=== PATIENT | female | born 1985 | race Caucasian/White ===

== ENCOUNTER 2018-04-03 13:19 | Emergency (ER) | payer OTHER ==
[2018-04-03 13:49] VITALS: BP 134/74
--- NOTE | 2018-04-03 14:12 | UC ---
Complaint Female HPI - HPI Summary HPI Summary: couple days of urgency frequency and burning with urination, no fevers, chills nausea vomiting or back pain - History Of Current Complaint Chief Complaint: UCGU Stated Complaint: URINARY Time Seen by Provider: 04/03/18 13:45 Hx Obtained From: Patient Hx Last Menstrual Period: IRREGULAR D/T DEOP INJ ?: No Onset/Duration: Sudden Onset, Lasting Days - 2 Timing: Constant Pain Intensity: 4 Pain Scale Used: 0-10 Numeric Character: Burning Aggravating Factor(s): Urination Associated Signs And Symptoms: Positive: Negative - Allergies/Home Medications Allergies/Adverse Reactions: Allergies Allergy/AdvReac Type Severity Reaction Status Date / Time No Known Allergies Allergy Verified 04/03/18 13:43 Home Medications: Home Medications medroxyPROGESTERone ACETATE* [DEPO-Provera*] 1 syringe SEE INSTRUCTIONS [History Confirmed 04/03/18] PMH/Surg Hx/FS Hx/Imm Hx Previously Healthy: Yes - Surgical History Surgical History: Yes Surgery Procedure, Year, and Place: gallbladder. 2 c-sections - Family History Known Family History: Positive: None - Social History Occupation: Employed Full-time Lives: With Family Alcohol Use: Occasionally Substance Use Type: None Smoking Status (MU): Never Smoked Tobacco - Immunization History Most Recent Tetanus Shot: UTD Review of Systems Constitutional: Negative Skin: Negative Eyes: Negative ENT: Negative Respiratory: Negative Cardiovascular: Negative Gastrointestinal: Negative Genitourinary: Dysuria, Frequency, Urgency Motor: Negative Neurovascular: Negative Musculoskeletal: Negative Neurological: Negative Psychological: Negative Is Patient Immunocompromised?: No All Other Systems Reviewed And Are Negative: Yes Physical Exam Triage Information Reviewed: Yes Appearance: Well-Appearing, No Pain Distress, Obese Vital Signs: Initial Vital Signs Temp 97.7 F 04/03/18 13:44 Pulse 89 04/03/18 13:44 Resp 16 04/03/18 13:44 BP 134/74 04/03/18 13:44 Pulse Ox 99 04/03/18 13:44 Vital Signs Reviewed: Yes Eye Exam: Normal Eyes: Positive: Conjunctiva Clear ENT Exam: Normal ENT: Positive: Normal ENT inspection, Hearing grossly normal. Negative: Trismus , Muffled voice, Hoarse voice Dental Exam: Normal Neck exam: Normal Neck: Positive: Supple, Nontender Respiratory Exam: Normal Respiratory: Positive: Chest non-tender, No respiratory distress, No accessory muscle use Cardiovascular Exam: Normal Cardiovascular: Positive: RRR, Pulses Normal, Brisk Capillary Refill Abdominal Exam: Normal Abdomen Description: Positive: Nontender, No Organomegaly, Soft. Negative: CVA Tenderness (R), CVA Tenderness (L) Bowel Sounds: Positive: Present Musculoskeletal Exam: Normal Musculoskeletal: Positive: Strength Intact, ROM Intact, No Edema Neurological Exam: Normal Neurological: Positive: Alert, Muscle Tone Normal Psychological Exam: Normal Skin Exam: Normal Complaint Female Dx - Course Course Of Treatment: will culture urine, begin bactrim and will d/c as appropriate - Differential Dx/Diagnosis Provider Diagnoses: UTI Sx Discharge - Sign-Out/Discharge Documenting (check all that apply): Patient Departure - Discharge Plan Condition: Stable Disposition: HOME Prescriptions: Sulfamethox/Trimethoprim DS* [Bactrim DS 800/160 TAB*] 1 tab PO BID #14 tab Patient Education Materials: Urinary Tract Infection in Women (ED), Urinary Urgency and Frequency (DC) Referrals: Shanita Ramon MD [Primary Care Provider] - 1 Week - Billing Disposition and Condition Condition: STABLE Disposition: Home Attestation Statement User Type: Provider - I was available for consult. This patient was seen by the KATHY. The patient was not presented to, seen by, or examined by me. -Robert
== END 2018-04-03 14:18 | disposition home or self-care (01) ==
LOC: UCCORT 13:19
DX: N39.0 Urinary tract infection, site not specified (principal)
CPT/HCPCS: 81003; 84702; 87086; 99212; G0463

== ENCOUNTER 2018-07-03 08:36 | Emergency (ER) | payer OTHER ==
--- OUTSIDE RECORDS SUMMARY | 2018-07-03 08:45 | XMS REPORT ---
:1985 External Reference #:[id number] Author Organization [facility] Address [address], [address] [place] [address] Phone [phone] Care Team Providers Name Role Phone Ivy Briceño FNP Care Team Information Insulation Sprayer Unavailable Ivy Briceño FNP Primary Care Physician Unavailable Payers Type Date Identification Numbers Payment Provider Subscriber Commercial Expires: Policy Number: [id number] [employer] Addie Cobos 2018 PayID: [id number] [address] [place] [address] Medicaid Policy Number: [id number] Medicaid Addie Cobos PayID: [id number] [address] [place] [address] Workers Compensation Onset: 2017 Policy Number: Franchesca Cobos [id number] PayID: [id number] 1 Franchesca Ledezma [place], [place] Problems Date Description Provider Status Onset: 07/06/2013 Palpitations GutierrezLudy vernon, Active MSN, COIL [employer]ER Onset: 07/06/2013 Dyspnea GutierrezLudy, Active MSN, COIL [employer]ER Onset: 07/06/2013 Abdominal pain Ludy Gutierrez, Active MSN, [employer]ER Onset: 07/06/2013 Dizziness and giddiness Ludy Gutierrez, Active MSN, COIL SH[employer]ER Onset: 07/06/2013 Chest pain GutierrezLudy garcia, Active MSN, COIL SH[employer]ER Onset: 06/16/2017 Mild intermittent asthma Gianni Garcia, COIL SHAPER Active Onset: 06/16/2017 Migraine without aura, not Tyra GarciamarleecaitlinROZ Active refractory Onset: 06/16/2017 Gastroesophageal reflux disease Gianni GarciaROZ Active Onset: 06/16/2017 Posttraumatic stress disorder Tyra GarciamarleecaitlinROZ Active Family History Date Family Member(s) Problem(s) Comments Father IBS Father Hypertension Father Anxiety Mother Chronic Obstructive Pulmonary Disease (COPD) : (age 60 Mother due to MT Years) Mother CHF Mother Diabetes Mother Kidney Disease Mother Anxiety Mother Depression : (age 65 Paternal Grandfather due to MT Years) : (age 92 Paternal Grandmother due to Old-Age Years) : (age 80 Maternal Grandfather due to Alzheimer's Years) Disease Maternal Grandmother Stroke Maternal Grandmother Hypertension Maternal Grandmother Alcoholism Social History Type Date Description Comments Marital Status Lives With Children Home Environment lives with spouse Diet Patient is on a gluten-free diet 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 Venlafaxine HCL 06/14 Active Tablets 75mg 90tab take 1 F41.1 Joss s tablet by MD Nu mouth once daily Depo-Provera 09/30 Active Suspension 150mg/ml 1ml 1 inj Yenny intramuscula drake Diehl M.D. 3month Lorazepam 08/27 Active Tablets 1mg 30tab 1 tab by F43.10 Hemant s mouth every Karime, daily as PNP-BC, needed, COIL SHAPER, reference #: Ibclc [id number] F41.9 Amoxicillin 05/31/ Hx Capsules 500mg 21cap take 1 tablet J01.9 Hemant, 2017 - s every 8 hours for 0 Karime, 10/12/ 7 days. PNP-BC, COIL SHAPER, 2018 Ibclc Polymyxin B 05/31/ Hx Solution 88016-0. 10ml instill 1 drop H10.0 Hemant, Sulfate/Trimethop 2018 - 1Unit/ML into affected eye 22 Karime, rim Sulfate 06/11/ -% 4 times per day PNP-BC, COIL SHAPER, 2018 for 5 days for Ibclc inflammation of eyelid lining Vitamin D3 08/28/ Hx Capsules 85047Maf 8caps 1 cap by mouth Shanita Ramon, 2017 - t every week x 8 M.D. 2017 Ferrous Sulfate 08/28/ Hx Tablets 325(65Fe 60tab take 1 tablet by Shanita Ramon, 2016 - ) mg s mouth bid M.D. 2017 Sumatriptan 06/16/ Hx Tablets 25mg 9tabs one by mouth at G43.0 Clune, Succinate 2016 the first sign of Jenniferlei headache, december h, COIL SHAPER repeat dose in 2 hours if needed. mdd 2 Zofran 06/16/ Hx Tablets 4mg 30tab 1tab po q4-6 hrs Cl2016 s prn for nausea h, COIL SHAPER Famotidine 01/22/ Hx Tablets 20mg 30tab 1 by mouth every 2016 - s day in the MD Freddy 2016 Zofran / Hx Tablets 2mg 30tab 1tab po q4-6 hrs Unknown 0000 - s prn for nausea 2016 Advair Diskus / Hx Aerosol 100-50mc 60uni twice a day as Clune, - g/Dose ts needed for wheeze Jenniferleig 08/27/ h, COIL SHAPER 2016 Omeprazole / Hx Capsules DR 20mg 30cap 1 by mouth every Clune, 0000 - s day Jenniferleig h, COIL SHAPER 2017 Lorazepam / Hx Tablets 0.5mg 30tab 1 by mouth bid F43.1 Shanita Ramon, 0000 - s prn 0 M.D. 2016 F41.9 Sulfamethoxazole/Trimethoprim Hx Tablets 800-160mg 14tabs 1 po Unknown DS bid Metoclopramide HCL Hx Tablets 5mg 30tabs 1 tab Unknown po q 4-6 hr prn for nausea Pepcid Hx Tablets 20mg 30tabs 1 by Unknown - mouth 06/16/2017 once a day Venlafaxine HCL ER Hx Caps ER 150mg 90caps take 1 Clune, - 24HR capsule Tyra 05/31/2018 by jason, mouth COIL SHAPER every morning Bupropion HCL ER (XL) Hx Tablets 300mg 90tabs 1 by Clune, - ER 24HR mouth Tyra 05/31/2018 daily jason, COIL SHAPER Topiramate Hx Tablets 100mg 180tabs take 1 Clune, - tablet Tyra 05/31/2018 2 times jason, daily COIL SHAPER Ventolin HFA Hx Aerosol 108(90Base 2 puffs J Unknown - ) mcg/Act by 4 05/31/2018 mouth 5 every 4 . hours 2 as 0 needed Ibuprofen Hx Tablets 600mg take 1 Unknown - tablet 05/31/2018 by mouth three times a day if needed for pain Medications Administered in Office Medication Date Status Form Strength Qnty SIG Indications Ordering Provider PPD Administered Injection Marcela Briceño FNP Vital Signs Date Vital Result Comment 06/14/2018 BP Systolic Sitting Right Arm 124 mmHg BP Diastolic Sitting Right Arm 76 mmHg Body Temperature 97.1 F Heart Rate 88 /min Respiratory Rate 18 /min Height 60 inches 5'0" Weight 242.38 lb BMI (Body Mass Index) 47.3 kg/m2 BSA (Body Surface Area) 2.03 m2 [place] body weight in kilograms 45 O2 % BldC Oximetry 97 % 05/31/2018 BP Systolic 112 mmHg BP Diastolic 72 mmHg Body Temperature 98.0 F Heart Rate 102 /min Respiratory Rate 18 /min Height 60 inches 5'0" Weight 243.00 lb BMI (Body Mass Index) 47.5 kg/m2 BSA (Body Surface Area) 2.03 m2 [place] body weight in kilograms 45 O2 % BldC Oximetry 97 % 09/30/2017 BP Systolic Sitting Left Arm 112 mmHg large cuff BP Diastolic Sitting Left Arm 68 mmHg large cuff Height 60 inches 5'0" Weight 227.50 lb BMI (Body Mass Index) 44.4 kg/m2 BSA (Body Surface Area) 1.97 m2 [place] body weight in kilograms 45 08/27/2017 BP Systolic 108 mmHg BP Diastolic 70 mmHg Body Temperature 98.0 F Heart Rate 89 /min Height 60 inches 5'0" Weight 227.00 lb BMI (Body Mass Index) 44.3 kg/m2 BSA (Body Surface Area) 1.97 m2 [place] body weight in kilograms 45 O2 % BldC Oximetry 98 % 06/19/2017 BP Systolic 125 mmHg BP Diastolic 86 mmHg Body Temperature 97.8 F Heart Rate 86 /min Height 60 inches 5'0" Weight 220.38 lb BMI (Body Mass Index) 43.0 kg/m2 BSA (Body Surface Area) 1.95 m2 [place] body weight in kilograms 45 06/16/2017 BP Systolic Sitting Resting Right Arm 112 mmHg BP Diastolic Sitting Resting Right Arm 72 mmHg Heart Rate 70 /min Height 59 inches 4'11" Weight 220.00 lb BMI (Body Mass Index) 44.4 kg/m2 BSA (Body Surface Area) 1.92 m2 [place] body weight in kilograms 45 01/22/2017 BP Systolic Sitting Left Arm 120 mmHg BP Diastolic Sitting Left Arm 90 mmHg Heart Rate 106 /min Respiratory Rate 16 /min Height 60 inches 5'0" Weight 237.00 lb BMI (Body Mass Index) 46.3 kg/m2 BSA (Body Surface Area) 2.01 m2 [place] body weight in kilograms 45 07/06/2013 BP Systolic Sitting Right Arm 104 mmHg BP Diastolic Sitting Right Arm 68 mmHg Heart Rate 84 /min Respiratory Rate 16 /min Height 60 inches 5'0" Weight 228.00 lb BMI (Body Mass Index) 44.5 kg/m2 BSA (Body Surface Area) 1.97 m2 Results Test Date Test Result H/L Range Note Laboratory test finding 06/14/2018 Mumps Antibodies, 26.2 AU/mL Immune > 10.9 1, 2 Igg Rubella IgG Antibody 4.69 index Immune >0.99 1, 3 Rubeola Antibodies, Igg >300.0 AU/mL Immune >29.9 1, 4 Laboratory test finding 04/03/2018 Poc , Urine Negative Negative 5 Poc Urinalysis 04/03/2018 Poc Glucose, Urine Negative Negative Poc Bilirubin, Urine Negative Negative Poc Ketone, Urine Negative Negative Poc Specific [place], Urine 1.025 1.010-1.030 Poc Blood, Urine Trace-intact Negative Poc pH, Urine 5.5 5-9 Poc Protein, Urine Negative Negative Poc Urobilinogen, Urine 0.2 Negative Poc Nitrite, Urine Negative Negative Poc Leukocytes, Urine Negative Negative Poc Color, Urine Yellow Poc Clarity, Urine Slightly Cloudy 6 Urine Culture And 04/03/2018 Urine Culture SEE RESULT BELOW 7, 8 Sensitivities Iron-Tibc-%Sat 08/27/2017 Serum Iron 25 g/dL Low 50-170 9 Total Iron Binding Capacity 383 g/dL 250-450 9 Transferrin %Saturation 7 % Low 12-57 9 Reflex add FT3? Y 9 Reflex add FT4? Y 9 Magnesium 08/27/2017 Magnesium 2.2 mg/dL 1.8-2.4 9 Reflex add FT3? Y 9 Reflex add FT4? Y 9 Laboratory test 08/27/2017 Vitamin D,25-Hydroxy 22.7 ng/mL Low 30.0-100.0 9, 10 finding Comprehensive 08/27/2017 Glucose 98 mg/dL 74-106 9 Metabolic Panel BUN 15 mg/dL 7-18 9 Creatinine 0.8 mg/dL 0.6-1.3 9 Glom Filtration Rate, Estimate >60 mL/min >60 9 If >60 mL/min >60 9, 11 BUN/Creat 18.7 ratio 9 Sodium 139 mmol/L 136-145 9 Potassium 4.3 mmol/L 3.5-5.1 9 Chloride 108 mmol/L High 98-107 9 Carbon Dioxide 27 mmol/L 21-32 9 Anion Gap 4 mEq/L Low 8-16 9 Calcium 8.7 mg/dL 8.5-10.1 9 Total Protein 7.4 g/dL 6.4-8.2 9 Albumin 3.3 g/dL Low 3.4-5.0 9 Globulin 4.1 g/dL 1.9-4.3 9 Alb/Glob 0.8 ratio 9 Bilirubin,Total 0.2 mg/dL 0.2-1.0 9 Sgot/Ast 14 U/L Low 15-37 9, 12 SGPT/Alt 19 U/L 12-78 9 Alkaline Phosphatase 86 U/L 45-117 9 Reflex add FT3? Y 9 Reflex add FT4? Y 9 TSH Reflex FT4 And/Or FT3 08/27/2017 Thyroid Stim Hormone 1.34 uIU/mL 0.30-4.20 9 Reflex add FT3? Y 9 Reflex add FT4? Y 9 CBS W/Automated Diff 08/27/2017 White Blood Count 5.5 K/uL 3.1-10.7 9 Red Blood Count 4.48 M/uL 3.90-5.40 9 Hemoglobin 11.3 gm/dL Low 11.6-15.8 9 Hematocrit 36.4 % 36.0-46.1 9 Mean Cell Volume 81.3 fl 80.9-99.0 9 Mean Corpuscular HGB 25.2 pg Low 25.9-32.7 9 Mean Corpuscular HGB Conc 31.0 g/dL 30.8-34.3 9 Platelet Count 366 K/uL High 155-360 9 Red Cell Distri Width SD 45.5 fl 3-47 9 Red Cell Distri Width %CV 15.8 % High 11.7-14.4 9 Mean Platelet Volume 9.4 fL 8.9-12.4 9 Neut% 59.6 % 40.4-72.8 9 Lymph % 30.3 % 20.0-42.0 9 [place] % 6.6 % 4.3-13.2 9 Eo% 3.1 % 0.0-6.6 9 Bas% 0.4 % 0.0-1.1 9 Neut# 3.26 K/uL 1.8-7.0 9 Lymph # 1.66 K/uL 1.0-4.0 9 [place] # 0.36 K/uL 0.3-0.9 9 Eos # 0.17 K/uL 0.0-0.5 9 Baso # 0.02 K/uL 0.0-0.1 9 CBS W/Automated Diff 04/30/2017 White Blood Count 5.5 K/uL 3.1-10.7 13 Red Blood Count 4.14 M/uL 3.90-5.40 13 Hemoglobin 10.8 gm/dL Low 11.6-15.8 13 Hematocrit 34.1 % Low 36.0-46.1 13 Mean Cell Volume 82.4 fl 80.9-99.0 13 Mean Corpuscular HGB 26.1 pg 25.9-32.7 13 Mean Corpuscular HGB Conc 31.7 g/dL 30.8-34.3 13 Platelet Count 304 K/uL 150-400 13 Red Cell Distri Width SD 44.8 fl 3-47 13 Red Cell Distri Width %CV 15.4 % High 11.7-14.4 13 Mean Platelet Volume 9.0 fL 8.9-12.4 13 Neut% 54.2 % 40.4-72.8 13 Lymph % 35.0 % 20.0-42.0 13 [place] % 7.9 % 4.3-13.2 13 Eo% 2.7 % 0.0-6.6 13 Bas% 0.2 % 0.0-1.1 13 Neut# 2.96 K/uL 1.8-7.0 13 Lymph # 1.91 K/uL 1.0-4.0 13 [place] # 0.43 K/uL 0.3-0.9 13 Eos # 0.15 K/uL 0.0-0.5 13 Baso # 0.01 K/uL 0.0-0.1 13 Ua RFX Micro & Culture II 04/30/2017 Urine Color YELLOW Yellow 13 Urine Clarity CLOUDY Clear 13 Urine Glucose - Dipstick NEGATIVE mg/dL Negative 13 Urine Bilirubin - Dipstick NEGATIVE Negative 13 Urine Ketone NEGATIVE mg/dL Negative 13 Urine Specific [place] 1.015 1.010-1.030 13 Urine Blood NEGATIVE Negative 13 Urine PH 8.0 High 6.5-7.5 13 Urine Protein - Dipstick TRACE mg/dL Negative 13 Urine Urobilinogen - Dipstick 0.2 E.U./dL 0.2-1.0 13 Urine Nitrite - Dipstick NEGATIVE Negative 13 Urine Leuk Esterase NEGATIVE Negative 13 Source: URINE, CLEAN CAT <SEE NOTE> 13, 14 Celiac Disease Comp AB Profile 01/22/2017 Immunoglobulin A 188 mg/dL 87- 352 15 Antigliadin Abs, IgG 3 units 0-19 15, 16 Antigliadin Abs, IgA 8 units 0-19 15, 17 Endomysial IgA Antibody Negative Negative 15 t-Transglutaminase IgA <2 U/mL 0-3 15, 18 t-Transglutaminase IgG <2 U/mL 0-5 15, 19 Laboratory test finding 01/22/2017 Sedimentation Rate 48 mm/hr High 0-20 15, 20 C-Reactive Protein,Quant 15.5 mg/L High <3.0 15 Iron-Tibc-%Sat 01/22/2017 Serum Iron 22 g/dL Low 50-170 15 Total Iron Binding Capacity 366 g/dL 250-450 15 Transferrin %Saturation 6 % Low 12-57 15 1 Z00.00 2 Negative <9.0 Equivocal 9.0 - 10.9 Positive >10.9 A positive result generally indicates past exposure to Mumps virus or previous vaccination. 3 Non-immune <0.90 Equivocal 0.90 - 0.99 Immune >0.99 Performed at: [address] [id number] [employer] Professor: Arianna Ho MD, Phone: [phone] 4 Negative <25.0 Equivocal 25.0 - 29.9 Positive >29.9 Presence of antibodies to Rubeola is presumptive evidence of immunity except when acute infection is suspected. Performed at: [address] [id number] [employer] Professor: Arianna Ho MD, Phone: [phone] 5 Human Intelligence: [id number] If is still suspected, please repeat test after 48 to 72 hours. 6 Human Intelligence: [id number] SEE RESULT BELOW Name: ADDIE COBOS : [address]: Aaliyah Coreas MD Acct: [id number] Unit: [id number] AGE: 33 Location: [facility] Re04/03/18 SEX: F Status: DEP ER SPEC: [id number] DEYVI: 04/03/[address]: Hafsa Dee NP REQ: [id number] RECD: 04/04/18 STATUS: ROSIO CARMONA DR: Shanita Coreas MD _ SOURCE: URINE [facility]: ORDERED: Urine Culture COMMENTS: [id number] Procedure Result Reported Site Urine Culture Final 04/05/18- 1323 ML No growth of clinically significant organisms * ML - Main Lab . END OF REPORT DEPARTMENT OF PATHOLOGY, [address] [place] [address] Chaka Barrios M.D. Director [facility] # [id number] 9 F43.10 K21.9 D50.9 10 Vitamin D deficiency has been defined by the [place] of Medicine and an Endocrine Society practice guideline as a level of serum 25-OH vitamin D less than 20 ng/mL (1,2). The Endocrine Society went on to further define vitamin D insufficiency as a level between 21 and 29 ng/mL (2). 1. IOM ([place] of Medicine). 2010. Dietary reference intakes for calcium and D. [place]: The National Academies Press. 2. Iman MF, Lore MARTINEZ, Dori WEBSTER, et al. Evaluation, treatment, and prevention of vitamin D deficiency: an Endocrine Society clinical practice guideline. JCEM. 2010; 96(7):1911-30. Performed at: - [address] [id number] [employer] Professor: Arianna Ho MD, Phone: [phone] 11 Note: Persistent reduction for 3 months or more in an eGFR <60 mL/min/1.73 m2 defines CKD. Patients with eGFR values >/=60 mL/min/1.73 m2 may also have CKD if evidence of persistent proteinuria is present. The original MDRD equation for estimated GFR is not valid for patients less than 18 years of age. Additional information may be found at www.kdoqi.org. 12 Values below the stated reference ranges of AST and ALT can be seen in normal populations. Clinical correlation is suggested. 13 STOMACH PAIN 14 URINE, CLEAN CATCH 15 R19.7 16 Negative 0 - 19 Weak Positive 20 - 30 Moderate to Strong Positive >30 17 Negative 0 - 19 Weak Positive 20 - 30 Moderate to Strong Positive >30 18 Negative 0 - 3 Weak Positive 4 - 10 Positive >10 Tissue Transglutaminase (tTG) has been identified as the endomysial antigen. Studies have demonstr- ated that endomysial IgA antibodies have over 99% specificity for gluten sensitive enteropathy. 19 Negative 0 - 5 Weak Positive 6 - 9 Positive >9 Performed at: - [facility] [id number] [employer] Professor: Arianna Ho MD, Phone: [phone] Method: Sediplast Modified [place] Procedures Date CPT Code Description Status 09/30/2017 11761 Colposcopy With Biopsy Completed 08/31/2015 Mammogram Completed 07/06/2013 63963 EKG-Tracing And Report Completed 07/06/2013 81849 EKG-Tracing And Report Completed 06/17/2013 99416 Event Monitor Inter/Review Only Completed 02/05/2009 58210 EGD With Biopsy Completed Encounters Type Date Location Provider CPT E/M Dx Office Visit 06/14/2018 3:00p [facility] Ivy Briceño FNP 87750 Z02.1 F41.1 L30.9 Z11.1 Office Visit 05/31/2018 3:30p [facility] Ivy Briceño FNP 56789 J01.90 H10.022 Office Visit 09/30/2017 11:30a [facility] Shanita Ramon M.D. 65898 R87.610 R87.810 F43.10 Office Visit 08/27/2017 10:15a [facility] Shanita Ramon M.D. 98554 F43.10 K21.9 J45.20 G43.009 R87.619 Office Visit 06/19/2017 9:30a Orthopaedic Office Nikki Henao, 66815 M25.531 [facility] M25.531 M25.531 Office Visit 06/16/2017 1:15p [facility] Gianni Garcia [facility] 88847 J45.20 G43.009 K21.9 F43.10 Office Visit 01/22/2017 9:15[place] [address] R10.9 R19.7 Office Visit 07/06/2013 2:00p Cardiology Office Ludy Gutierrez, 52419 785.1 [facility], [facility] 786.05 780.4 786.50 Office Visit 06/17/2013 4:57p Cardiology Office Manjeet Lay, 86460 785.1 [place], [facility] 786.05 Office Visit 02/20/2009 1:45p [place] [address] 789.00 Office Visit 12/07/2008 10:20[place] [address] 789.09 Plan of Care Future Appointment(s):07/07/2018 4:00 pm - Ivy Briceño FNP at [facility]
--- OUTSIDE RECORDS SUMMARY | 2018-07-03 08:45 | XMS REPORT | Continuity of Care Document ---
:1985 External Reference #:[id number] Author Name Hillary Oglesby NP Address [address] [place] [address] Care Team Providers Name Role Phone Shanita Ramon MD Primary Care Physician Unavailable Payers Type Date Identification Numbers Payment Provider Subscriber Effective: 2018 Policy Number: [id number] [place] Addie Causey PayID: [id number] [address] [place] [phone] Expires: 2018 Policy Number: [id number] Medicaid Pe ([facility]) Addie Causey PayID: [id number] [address] [place] [id number] Advance Directives Description No Information Available Problems Description No Active Problems Family History Date Family Member(s) Problem(s) Comments Father Hypertension Father Alive Mother Social History Type Date Description Comments Sex Female Education Highest level completed, 12th grade Marital Status Legal Status: Tobacco Use Reviewed: 01/13/18 Never Smoked Cigars Tobacco Use Reviewed: 01/13/18 Never Smoked A Pipe Smoking Status Reviewed: 01/13/18 Never Smoked A Pipe Tobacco Use Reviewed: 01/13/18 Never Used Smokeless Tobacco ETOH Use Rarely consumes alcohol Recreational Drug Use Teaching provided regarding Naloxone/Narcan Training Available At [facility] Tobacco Use Start: Unknown End: Patient is a former smoker Unknown Recreational Drug Use Never Used Drugs Tattoo/Piercing Tattoo Tattoo/Piercing Tattoos professionally done Condom Use Occasionally Contraceptive Methods Past methods include oral contraceptives Contraceptive Methods Current methods include depo-provera injection UNKNOWN 01/13/2018 Never E-Cigarette User Allergies, Adverse Reactions, Alerts Description No Known Drug Allergies Medications Medication Date Status Form Strength Qnty SIG Indications Ordering Provider Diflucan 06/17 Active Tablets 150mg 2tabs one tab by B37.3 mouth x one Kelchner, 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 one tab by mouth 72 hours later Depo-Provera 04/07 Active Suspension 150mg/ml 1ml intramuscular In every 12 MD Johnathan weeks til next annual Valacyclovir 11/20 Active Tablets 1gm 5tabs one tab by A60.04 In mouth once a MD Johnathan day x 5 days prn at onset of symptoms Flagyl 05/19 Hx Tablets 500mg 4tabs four tabs by A59.01 In mouth x 1 MD Johnathan - dose 06/17 Fluconazole 05/19 Hx Tablets 150mg 2tabs one tab today A59.01 In and december MD Johnathan - repeat in 10 06/17 days if still symptomatic Fluconazole 04/07 Hx Tablets 150mg 2tabs one tab today B37.3 In and december MD Johnathan - repeat in 05/19 days if still symptomatic Metronidazole 02/25 Hx Tablets 500mg 14tab one tab by N76.0 s mouth twice Kelchner, - daily x 7 LA[employer] WORKER 04/07 days no etoh Diflucan 02/25 Hx Tablets 150mg 1tabs one tab N76.0 orally x one Kelchner, - dose. LAUNDRY WORKER 04/07 Diflucan 11/20 Hx Tablets 150mg 2tabs one tab B37.3 orally x one Kelchner, - dose. december LAUNDRY WORKER 02/25 repeat in days. Valacyclovir 11/02 Hx Tablets 1gm 20tab one tab by A60.04 s mouth twice a Kelchner, - day x 10 days LAUNDRY WORKER 11/20 Metronidazole 11/02 Hx Tablets 500mg 14tab one tab by Z11.3 s mouth twice Kelchner, - daily x 7 LAUNDRY WORKER 11/20 days no etoh Depo-Provera 07/28 Hx Suspension 150mg/ml 1ml 1 Z30.42 intramuscular Kelchner, - injection [employer] WORKER 06/17 every weeks until annual exam Effexor XR Hx Unknown /0000 - 04/07 Wellbutrin SR Hx Unknown /0000 - 04/07 Omeprazole 00/ Hx Unknown /0000 - 04/07 Keflex / Hx Unknown /0000 - 02/25 Medications Administered in Office Medication Date Status Form Strength Qnty SIG Indications Ordering Provider Plan B One-Step 07/28/ Administered Tablets 1.5mg 1tabs take Z30.012 Hillary Vidal 2017 one Mendel, serena LA[employer]DR[employer] WORKER today Plan B One-Step 1tabs1 Administered Tablets 1.5mg 1 tab In [facility] by MD Johnathan 017 mouth now J-Depo Provera 04/07/ Administered Injection Estephania Injection 2017 TANYA Koch J-Depo Provera 01/13/ Administered Injection Cielo Injection 2017 Edwards J-Depo Provera 10/16/ Administered Injection Cielo Injection 2017 Edwards J-Depo Provera 10/16/ Administered Injection RN Injection 2017 Schedule Emergency 07/28/ Administered Injection Hillary Vidal Contraceptive 2017 TANYA Oglesby J-Depo Provera 07/28/ Administered Injection Hillary M Injection 2017 TANYA Oglesby Emergency 06/22/ Administered Injection Cielo Contraceptive 2016 Edwards Immunizations Description No Information Available Vital Signs Date Vital Result Comment 06/17/2018 11:01am BP Systolic 123 mmHg BP Diastolic 82 mmHg Height 60 inches 5'0" Weight 241.00 lb BMI (Body Mass Index) 47.1 kg/m2 05/19/2018 11:46am BP Systolic 124 mmHg BP Diastolic 78 mmHg Height 60 inches 5'0" Weight 244.00 lb BMI (Body Mass Index) 47.6 kg/m2 04/07/2018 10:33am BP Systolic 132 mmHg electronic BP Diastolic 77 mmHg electronic Height 60 inches 5'0" Weight 240.00 lb BMI (Body Mass Index) 46.9 kg/m2 02/25/2018 12:18pm BP Systolic 125 mmHg BP Diastolic 80 mmHg Height 60 inches 5'0" Weight 240.00 lb BMI (Body Mass Index) 46.9 kg/m2 01/13/2018 9:24am BP Systolic 124 mmHg BP Diastolic 80 mmHg Weight 227.00 lb 11/20/2017 2:34pm BP Systolic 110 mmHg BP Diastolic 70 mmHg Height 60 inches 5'0" Weight 218.00 lb BMI (Body Mass Index) 42.6 kg/m2 11/02/2017 12:15pm BP Systolic 124 mmHg BP Diastolic 80 mmHg Height 60 inches 5'0" Weight 218.00 lb BMI (Body Mass Index) 42.6 kg/m2 10/16/2017 9:15am BP Systolic 124 mmHg BP Diastolic 74 mmHg Weight 232.00 lb 07/28/2017 2:21pm BP Systolic 119 mmHg BP Diastolic 85 mmHg Height 60 inches 5'0" Weight 229.00 lb BMI (Body Mass Index) 44.7 kg/m2 06/25/2017 11:22am BP Systolic 120 mmHg BP Diastolic 80 mmHg Height 60 inches 5'0" Weight 218.00 lb BMI (Body Mass Index) 42.6 kg/m2 06/22/2017 3:01pm BP Systolic 120 mmHg BP Diastolic 78 mmHg Height 60 inches 5'0" Weight 220.00 lb BMI (Body Mass Index) 43.0 kg/m2 Results Test Date Facility Test Result H/L Range Note Laboratory test finding 06/17/2018 [facility] Trichomonas neg Wet Prep.... 06/17/2018 [facility] WBC Smear 0 Clue Cells Vag Fluid Wet Prep 0 Jerri Wet Prep hyphae and buds Lactobacillus Wet Prep few Whiff Wet Prep neg. Bacteria Wet Prep n/a PH Wet Prep 7.5 High multiples rbc's Misc Other Test no trich seen Laboratory test finding 05/19/2018 [facility] Trichomonas positive Wet Prep.... 05/19/2018 [facility] WBC Smear neg Clue Cells Vag Fluid Wet Prep neg Jerri Wet Prep neg Lactobacillus Wet Prep pos Whiff Wet Prep pos Bacteria Wet Prep na PH Wet Prep 6 Misc Other Test no tric seen ( Chlamydia/N 05/19/[address] [facility] [address],Rna,Tma,Urogenital NOT DETECTED Not Detected 1 Gonorroeae Rna Tma Urogenit GC Rna,Tma,Urogen NOT DETECTED Not Detected 2 Wet Prep.... 04/07/2018 [facility] WBC Smear neg Clue Cells Vag Fluid Wet Prep neg Jerri Wet Prep many Lactobacillus Wet Prep neg Whiff Wet Prep neg Bacteria Wet Prep na PH Wet Prep 4.5 Misc Other Test no tric Wet Prep.... 02/25/2018 [facility] WBC Smear 0 Clue Cells Vag Fluid Wet Prep many Jerri Wet Prep 0 Lactobacillus Wet Prep few Whiff Wet Prep + Bacteria Wet Prep n/a PH Wet Prep 7.5 Misc Other Test no trich seen Chlamydia/N 02/25/[address] [facility] [address],Rna,Tma,Urogenital NOT DETECTED Not Detected 3 Gonorroeae Rna Tma Urogenit GC Rna,Tma,Urogen NOT DETECTED Not Detected 4 Chlam 11/20/2017 [facility] C.Trachomatis NOT DETECTED Not Detected 5 Trach/Neisseria Rna,Tma Gonorroeae Rna Tma N.Gonorrhoeae Rna,Tma NOT DETECTED Not Detected 6 Wet Prep.... 11/20/2017 [facility] WBC Smear few Clue Cells Vag Fluid Wet Prep 0 Jerri Wet Prep many Lactobacillus Wet Prep many Whiff Wet Prep neg. Bacteria Wet Prep n/a PH Wet Prep 4.5 Misc Other Test no trich seen Urinalysis DIP Only.... 11/20/2017 [facility] Urine Leukocyte Esterase QN neg. Urine Nitrite QN neg. Urine Blood neg. Urine PH 7 Urine Protein Random neg. Urine Ketone Random neg. Urine Glucose QN Random neg. Chlam 11/02/2017 [facility] C.Trachomatis NOT DETECTED Not Detected 7 Trach/Neisseria Rna,Tma Gonorroeae Rna Tma N.Gonorrhoeae Rna,Tma NOT DETECTED Not Detected 8 Herpes Simplex Virus Culture W/RFX 11/02/2017 [facility] OTHER-NOT GIVEN Type HSV Culture ISOLATED Not Isolated Laboratory test finding 11/02/2017 [facility] HSV Type 2 ISOLATED Not Isolated 9 Wet Prep.... 11/02/2017 [facility] WBC Smear few Clue Cells Vag Fluid Wet Prep many Jerri Wet Prep 0 Lactobacillus Wet Prep few Whiff Wet Prep + Bacteria Wet Prep n/a PH Wet Prep 6.0 Misc Other Test no trich seen Laboratory test 08/13/2017 [facility] Test neg finding Urine..... Laboratory test 07/28/2017 [facility] Test negative finding Urine..... Thinprep Tis And 06/25/2017 [facility] Results ASCUS/ HPV+ 10 HPV Rna HR E6/E7 Tma Chlam 06/25/2017 [facility] C.Trachomatis NOT DETECTED Not Detected 11, 12 Trach/Neisseria Rna,Tma Gonorroeae Rna Tma N.Gonorrhoeae Rna,Tma NOT DETECTED Not Detected 13 Laboratory test finding 06/25/2017 [facility] Test Urine..... neg 1 This test was performed using the APTIMA COMBO2(R) Assay (GEN-PROBE(R). The analytical performance characteristics of this assay, when used to test SurePath(R) specimens have been determined by [employer]. 2 This test was performed using the APTIMA COMBO2(R) Assay (GEN-PROBE(R). The analytical performance characteristics of this assay, when used to test SurePath(R) specimens have been determined by [facility]. 3 This test was performed using the APTIMA COMBO2(R) Assay (GEN-PROBE(R). The analytical performance characteristics of this assay, when used to test SurePath(R) specimens have been determined by [facility]. 4 This test was performed using the APTIMA COMBO2(R) Assay (GEN-PROBE(R). The analytical performance characteristics of this assay, when used to test SurePath(R) specimens have been determined by [facility]. 5 This test was performed using the APTIMA COMBO2(R) Assay (GEN-PROBE(R). The analytical performance characteristics of this assay, when used to test SurePath(R) specimens have been determined by [facility]. 6 This test was performed using the APTIMA COMBO2(R) Assay (GEN-PROBE(R). The analytical performance characteristics of this assay, when used to test SurePath(R) specimens have been determined by [facility]. 7 This test was performed using the APTIMA COMBO2(R) Assay (GEN-PROBE(R). The analytical performance characteristics of this assay, when used to test SurePath(R) specimens have been determined by [facility]. 8 This test was performed using the APTIMA COMBO2(R) Assay (GEN-PROBE(R). The analytical performance characteristics of this assay, when used to test SurePath(R) specimens have been determined by [facility]. 9 HSV Type 1 testing not performed. The incidence of HSV Type 1 infection in the presence of HSV type 2 (dual infection) is extremely rare. 10 GYNECOLOGICAL CYTOLOGY REPORT THINPREP TIS AND HPV mRNA E6/E7 Thinprep-TIS REPORT STATUS: FINAL CLINICAL INFORMATION: Information not provided SLIDES / SOURCE: 1 / Information not provided STATEMENT OF ADEQUACY: Satisfactory for evaluation. Endocervical/transformation zone component present. GENERAL CATEGORIZATION: EPITHELIAL CELL ABNORMALITY INTERPRETATION/RESULT: Atypical Squamous Cells of Undetermined Significance (ASC-US) Shift in vaginal bill suggestive of bacterial vaginosis. COMMENT: This Pap test has been evaluated with computer assisted technology. HOME APPLIANCE INSTALLER: MERCED CRUZ(ASC) For informational Purposes: All cytology specimens are processed and screened at [facility]. [address] [place] [id number] PATHOLOGIST: Curt Sánchez MD Board Certified in Anatomic and Clinical Pathology (electronic signature) For questions regarding this report call Anatomic Pathology at [phone] HPV mRNA E6/E7 HPV mRNA E6E7 Detected REFERENCE RANGE: NOT DETECTED This test was performed using the APTIMA HPV Assay ([employer] This assay detects E6/E7 viral messenger RNA (mRNA) from 14 high-risk HPV types (16,18,31,33,35,39,45,51,52,56,58,59,66,68). For more information on the limitations of this test, visit: http://[email or web address]_ [employer].Urbasolar/testcenter/ testguide.action?dc=TS_[email or web address]_E7_TMA 11 cx 12 This test was performed using the APTIMA COMBO2(R) Assay ([employer](R). The analytical performance characteristics of this assay, when used to test SurePath(R) specimens have been determined by [employer]. 13 This test was performed using the APTIMA COMBO2(R) Assay (GEN-PROBE(R). The analytical performance characteristics of this assay, when used to test SurePath(R) specimens have been determined by [employer]. Procedures Date Code Description Status 04/07/2018 07208 Therapeutic, Prophylactic Or Diagnostic Injection Subq/Im Completed 01/13/2018 73876 Therapeutic, Prophylactic Or Diagnostic Injection Subq/Im Completed 10/16/2017 48026 Therapeutic, Prophylactic Or Diagnostic Injection Subq/Im Completed 10/16/2017 70152 Therapeutic, Prophylactic Or Diagnostic Injection Subq/Im Completed 07/28/2017 44780 Therapeutic, Prophylactic Or Diagnostic Injection Subq/Im Completed Encounters Description No Information Available Plan of Treatment Future Appointment(s):06/24/2018 12:00 pm - LAUNDRY WORKER at [facility]06/17/2018 - Hillary Oglesby, NPB37.3 Candidiasis of vulva and vaginaNew Medication:Diflucan 150 mg - one tab by mouth x one dose then take one tab by mouth 72 hours laterComments: Hyphae seen on wet prep. Treat for Jerri with Diflucan. Reviewed use of, side effects and precautions of medication with patient who states understanding. Instructed patient on genital hygeine.Z30.42 Encounter for surveillance of injectable contraceptiveComments:Patient is UTD on her Depo. She will continue on Depo for now. She is considering switching to either an IUD or a Nexplanon. She is scheduled for an appointment in one week. She states that she has brochures on both. Advised her that should she decide that she would like an IUD , she should call the office 2-3 days before her appointment so that she can be given pre-insertion instructions and possiblea rx for Cytotec. Patient states understanding.Z11.3 Encounter for screening for infections with a predominantlyComments:Reviewed STD risks and prevention with patient. Patient states understanding.R21 Rash and other nonspecific skin eruptionComments: Unclear etiology. Appears to be viral in nature. Advised patient that she could try OTC benadryl or loratadine prn for the itching. Advised her that should sx worsen or not resolve, she should schedulea f/u appt with her PCP.
[2018-07-03 09:00] VITALS: BP 140/61
[2018-07-03] MEDS ORDERED: Ibuprofen TAB* 400 MG PO ONE (09:18)
--- NOTE | 2018-07-03 09:21 | UC ---
Throat Pain/Nasal Haris HPI - HPI Summary HPI Summary: Pt c/o sudden onset of ST, fever, chills, body aches X 2 days. - History of Current Complaint Chief Complaint: UCRespiratory Stated Complaint: SORE THROAT Time Seen by Provider: 07/03/18 09:06 Hx Obtained From: Patient Hx Last Menstrual Period: 2nd week May 2018 ?: No Onset/Duration: Sudden Onset, Lasting Days, Still Present Severity: Moderate Pain Intensity: 5 Cough: None Associated Signs & Symptoms: Positive: Dysphagia, Fever - Epiglottits Risk Factors Epiglottis Risk Factors: Sudden Onset - Allergies/Home Medications Allergies/Adverse Reactions: Allergies Allergy/AdvReac Type Severity Reaction Status Date / Time No Known Allergies Allergy Verified 07/03/18 08:51 Home Medications: Home Medications Acetaminophen [Acetaminophen Extra Strength] 1,000 mg PO ONCE PRN 07/03/18 [ History Confirmed 07/03/18] Ibuprofen TAB* [Motrin TAB* 600 MG] 600 mg PO ONCE PRN 07/03/18 [History Confirmed 07/03/18] Venlafaxine EXT RELEASE CAP* [Effexor Xr CAP*] 75 mg PO DAILY 07/03/18 [History Confirmed 07/03/18] PMH/Surg Hx/FS Hx/Imm Hx Previously Healthy: Yes - Surgical History Surgical History: Yes Surgery Procedure, Year, and Place: gallbladder. 2 c-sections - Family History Known Family History: Positive: Cardiac Disease - Social History Occupation: Works From/At Home Lives: With Family Alcohol Use: Rare Substance Use Type: None Smoking Status (MU): Former Smoker Have You Smoked in the Last Year: No - Immunization History Most Recent Tetanus Shot: UTD Review of Systems Constitutional: Fever, Chills, Fatigue Skin: Negative Eyes: Negative ENT: Sore Throat, Sinus Congestion Respiratory: Negative Cardiovascular: Negative Gastrointestinal: Negative Genitourinary: Negative Motor: Negative Neurovascular: Negative Musculoskeletal: Myalgia Neurological: Negative Psychological: Negative Is Patient Immunocompromised?: No All Other Systems Reviewed And Are Negative: Yes Physical Exam Triage Information Reviewed: Yes Appearance: Ill-Appearing Vital Signs: Initial Vital Signs Temp 98.6 F 07/03/18 08:55 Pulse 116 07/03/18 08:55 Resp 18 07/03/18 08:55 BP 140/61 07/03/18 08:55 Pulse Ox 98 07/03/18 08:55 Eye Exam: Normal ENT: Positive: Pharyngeal erythema, Tonsillar swelling, Tonsillar exudate Dental Exam: Normal Neck: Positive: Enlarged Nodes @ - submaxillary Respiratory Exam: Normal Cardiovascular Exam: Normal Cardiovascular: Positive: Tachycardia Musculoskeletal Exam: Normal Neurological Exam: Normal Psychological Exam: Normal Skin Exam: Normal Diagnostics - Laboratory Diagnostic Studies Completed/Ordered: rapid strep: positive Throat Pain/Nasal Course/Dx - Differential Dx/Diagnosis Differential Diagnosis/HQI/PQRI: Influenza, Pharyngitis, Tonsillitis, URI Provider Diagnoses: strep throat Discharge - Sign-Out/Discharge Documenting (check all that apply): Patient Departure All imaging exams completed and their final reports reviewed: No Studies - Discharge Plan Condition: Stable Disposition: HOME Prescriptions: Fluconazole [Diflucan 150 MG (NF)] 150 mg PO ONCE #2 tab Penicillin VK 500 MG TAB(NF) [Penicillin VK 500 mg Tab] 500 mg PO QID #40 tab Patient Education Materials: Strep Throat (ED) Referrals: Shanita Ramon MD [Primary Care Provider] - If Needed - Billing Disposition and Condition Condition: STABLE Disposition: Home
== END 2018-07-03 09:54 | disposition home or self-care (01) ==
LOC: UCCORT 08:36
DX: J02.0 Streptococcal pharyngitis (principal); Z87.891 Personal history of nicotine dependence
CPT/HCPCS: 87651; 99212; A9270-GY; G0463

== ENCOUNTER 2018-07-19 09:05 | Emergency (ER) | payer OTHER ==
--- OUTSIDE RECORDS SUMMARY | 2018-07-19 09:12 | XMS REPORT ---
:1985 External Reference #:[id number] Author Organization [facility] Address [address], [address] [place] [address] Phone [phone] Care Team Providers Name Role Phone Ivy Briceño FNP Care Team Information Labor Delivery Rn Unavailable Ivy Briceño FNP Primary Care Physician Unavailable Payers Type Date Identification Numbers Payment Provider Subscriber Commercial Policy Number: [id number] [employer] Addie Cobos PayID: [id number] [address] [place] [address] Commercial Expires: 2018 Policy Number: [employer] Addie Cobos [id number] PayID: [id number] [address] [place] [address] Medicaid Expires: 2018 Policy Number: [id number] Medicaid Addie Cobos PayID: [id number] [address] [place] [address] Workers Compensation Onset: 2017 Policy Number: Franchesca Cobos [id number] PayID: [id number] 1 Franchesca Ledezma [place], [place] Problems Date Description Provider Status Onset: 07/06/2013 Palpitations Ludy Gutierrez, Active MSN, [employer]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 Onset: 07/06/2013 Dyspnea Ludy Gutierrez, Active MSN, [employer]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 Onset: 07/06/2013 Abdominal pain GutierrezLudy garcia, Active MSN, 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 Onset: 07/06/2013 Dizziness and giddiness Ludy Gutierrez, Active MSN, [employer]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 Onset: 07/06/2013 Chest pain Matt Ludyjuan Bernardo, Active MSN, [employer]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 Onset: 06/16/2017 Mild intermittent asthma Gianni GarciaROZ Active Onset: 06/16/2017 Migraine without aura, not Gianni Garcia FNP Active refractory Onset: 06/16/2017 Gastroesophageal reflux disease Gianni Garcia FNP Active Onset: 06/16/2017 Posttraumatic stress disorder Tyra Garciamarleecaitlin 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 Active Family History Date Family Member(s) Problem(s) Comments Father IBS Father Hypertension Father Anxiety Mother Chronic Obstructive Pulmonary Disease (COPD) : (age 60 Mother due to NC Years) Mother CHF Mother Diabetes Mother Kidney Disease Mother Anxiety Mother Depression : (age 65 Paternal Grandfather due to NC Years) : (age 92 Paternal Grandmother due to Old-Age Years) : (age 80 Maternal Grandfather due to Alzheimer's Years) Disease Maternal Grandmother Stroke Maternal Grandmother Hypertension Maternal Grandmother Alcoholism Social History Type Date Description Comments Marital Status Lives With Children Home Environment lives with spouse Diet Patient is on a gluten-free diet 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 Lorazepam 08/27/ Active Tablets 1mg 30tabs 1 tab by F43.10 Hemant, 2017 mouth every Karime, daily as PNP-BC, needed, [employer]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, reference Ibclc #: [id number] F41.9 Penicillin V Active Tablets 250mg for current Unknown Potassium strep Venlafaxine 06/14/2018 - Hx Tablets 75mg 90t take 1 tablet by F41 Joss, HCL 07/07/2018 abs mouth once daily .1 MD Nu Amoxicillin 05/31/2018 - Hx Capsules 500mg 21c take 1 tablet J01 Hemant , 06/11/2018 aps every 8 hours .90 Karime, for 7 days. PNP-BC, 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, Ibclc Polymyxin B 05/31/2018 - Hx Solution 48413-1. 10m instill 1 drop H10 Hemant, Sulfate/Trimet 06/11/2018 1Unit/ML l into affected .02 Karime, hoprim Sulfate -% eye 4 times per 2 PNP-BC, day for 5 days [employer]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, for inflammation Ibclc of eyelid lining Depo-Provera 09/30/2017 - Hx Suspension 150mg/ml 1ml 1 inj Yenny, 07/07/2018 intramuscular Shanita, finn 3month M.DAngelito Vitamin D3 08/28/2017 - Hx Capsules 02161Wmm 8ca 1 cap by mouth Yenny, 05/31/2018 t ps every week x 8 liss Diehl M.D. Ferrous 08/28/2017 - Hx Tablets 325(65Fe 60t take 1 tablet by Yenny, Sulfate 05/31/2018 ) mg abs mouth bid Fransico Diehl Sumatriptan 06/16/2017 Hx Tablets 25mg 9ta one by mouth at G43 Radha Succinate bs the first sign .00 Jenniferl of headache, january 06 eigh, 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 repeat dose in 2 hours if needed. mdd 2 Zofran 06/16/2017 Hx Tablets 4mg 30t 1tab po q4-6 hrs Clune, abs prn for nausea Jenniferl eigh, 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 Famotidine 01/22/2017 - Hx Tablets 20mg 30t 1 by mouth every Maria Esther 06/16/2017 abs day in the , Freddy, evening Zofrpage - Hx Tablets 2mg 30t 1tab po q4-6 hrs Unknown 06/16/2017 abs prn for nausea Advair Diskus - Hx Aerosol 100-50mc 60u twice a day as Clune, 08/27/2017 g/Dose nit needed for Jenniferl s wheeze eigh, 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 Omeprazole - Hx Capsules DR 20mg 30c 1 by mouth every Clune , 05/31/2018 day Jennifervikram pino, [employer]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 Lorazepam - Hx Tablets 0.5mg 30t 1 by mouth bid F43 Yenny, 08/27/2017 abs prn .10 Fransico Diehl F41.9 Sulfamethoxazole/Trimethoprim Hx Tablets 800-160mg 14tabs 1 po Unknown DS bid Metoclopramide HCL Hx Tablets 5mg 30tabs 1 tab Unknown po q 4-6 hr prn for nausea Pepcid Hx Tablets 20mg 30tabs 1 by Unknown - mouth 06/16/2017 once a day Venlafaxine HCL ER Hx Caps ER 150mg 90caps take 1 Clune, - 24HR capsule Tyra 05/31/2018 by jason, mouth 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 every morning Bupropion HCL ER (XL) Hx Tablets 300mg 90tabs 1 by Clune, - ER 24HR mouth Tyra 05/31/2018 daily ROZ gomez Topiramate Hx Tablets 100mg 180tabs take 1 Clune, - tablet Tyra 05/31/2018 2 times jason, daily 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 Ventolin HFA Hx Aerosol 108(90Base 2 puffs J Unknown - ) mcg/Act by 4 05/31/2018 mouth 5 every 4 . hours 2 as 0 needed Ibuprofen Hx Tablets 600mg take 1 Unknown - tablet 05/31/2018 by mouth three times a day if needed for pain Medications Administered in Office Medication Date Status Form Strength Qnty SIG Indications Ordering Provider [facility] Administered Injection Marcela Briceño FNP Vital Signs Date Vital Result Comment 07/07/2018 BP Systolic Sitting Right Arm 130 mmHg BP Diastolic Sitting Right Arm 72 mmHg Body Temperature 98.5 F Heart Rate 82 /min Respiratory Rate 22 /min Height 60 inches 5'0" Weight 235.50 lb BMI (Body Mass Index) 46.0 kg/m2 BSA (Body Surface Area) 2.00 m2 [place] body weight in kilograms 45 O2 % BldC Oximetry 96 % 06/14/2018 BP Systolic Sitting Right Arm 124 mmHg BP Diastolic Sitting Right Arm 76 mmHg Body Temperature 97.1 F Heart Rate 88 /min Respiratory Rate 18 /min Height 60 inches 5'0" Weight 242.38 lb BMI (Body Mass Index) 47.3 kg/m2 BSA (Body Surface Area) 2.03 m2 [place] body weight in kilograms 45 O2 % BldC Oximetry 97 % 05/31/2018 BP Systolic 112 mmHg BP Diastolic 72 mmHg Body Temperature 98.0 F Heart Rate 102 /min Respiratory Rate 18 /min Height 60 inches 5'0" Weight 243.00 lb BMI (Body Mass Index) 47.5 kg/m2 BSA (Body Surface Area) 2.03 m2 [place] body weight in kilograms 45 O2 % BldC Oximetry 97 % 09/30/2017 BP Systolic Sitting Left Arm 112 mmHg large cuff BP Diastolic Sitting Left Arm 68 mmHg large cuff Height 60 inches 5'0" Weight 227.50 lb BMI (Body Mass Index) 44.4 kg/m2 BSA (Body Surface Area) 1.97 m2 [place] body weight in kilograms 45 08/27/2017 BP Systolic 108 mmHg BP Diastolic 70 mmHg Body Temperature 98.0 F Heart Rate 89 /min Height 60 inches 5'0" Weight 227.00 lb BMI (Body Mass Index) 44.3 kg/m2 BSA (Body Surface Area) 1.97 m2 [place] body weight in kilograms 45 O2 % BldC Oximetry 98 % 06/19/2017 BP Systolic 125 mmHg BP Diastolic 86 mmHg Body Temperature 97.8 F Heart Rate 86 /min Height 60 inches 5'0" Weight 220.38 lb BMI (Body Mass Index) 43.0 kg/m2 BSA (Body Surface Area) 1.95 m2 [place] body weight in kilograms 45 06/16/2017 BP Systolic Sitting Resting Right Arm 112 mmHg BP Diastolic Sitting Resting Right Arm 72 mmHg Heart Rate 70 /min Height 59 inches 4'11" Weight 220.00 lb BMI (Body Mass Index) 44.4 kg/m2 BSA (Body Surface Area) 1.92 m2 [place] body weight in kilograms 45 01/22/2017 BP Systolic Sitting Left Arm 120 mmHg BP Diastolic Sitting Left Arm 90 mmHg Heart Rate 106 /min Respiratory Rate 16 /min Height 60 inches 5'0" Weight 237.00 lb BMI (Body Mass Index) 46.3 kg/m2 BSA (Body Surface Area) 2.01 m2 [place] body weight in kilograms 45 07/06/2013 BP Systolic Sitting Right Arm 104 mmHg BP Diastolic Sitting Right Arm 68 mmHg Heart Rate 84 /min Respiratory Rate 16 /min Height 60 inches 5'0" Weight 228.00 lb BMI (Body Mass Index) 44.5 kg/m2 BSA (Body Surface Area) 1.97 m2 Results Test Date Test Result H/L Range Note Rapid Influenza A & B 07/03/2018 Influenza A Molecular NEGATIVE Negative 1 Molecular Influenza B Molecular NEGATIVE Negative Laboratory test 07/03/2018 Rapid Strep POSITIVE Negative 2 finding Molecular Laboratory test 06/14/2018 Mumps Antibodies, Igg 26.2 AU/mL Immune >10.9 3, 4 finding Rubella IgG Antibody 4.69 index Immune >0.99 3, 5 Rubeola Antibodies, Igg >300.0 AU/mL Immune >29.9 3, 6 Laboratory test finding 04/03/2018 Poc , Urine Negative Negative 7 Poc Urinalysis 04/03/2018 Poc Glucose, Urine Negative Negative Poc Bilirubin, Urine Negative Negative Poc Ketone, Urine Negative Negative Poc Specific [place], Urine 1.025 1.010-1.030 Poc Blood, Urine Trace-intact Negative Poc pH, Urine 5.5 5-9 Poc Protein, Urine Negative Negative Poc Urobilinogen, Urine 0.2 Negative Poc Nitrite, Urine Negative Negative Poc Leukocytes, Urine Negative Negative Poc Color, Urine Yellow Poc Clarity, Urine Slightly Cloudy 8 Laboratory Studies 04/03/2018 Bedside Urine Specific [place] 1.025 1.010- 1.030 (Lab Bedside Urine Urobilinogen (Lab) 0.2 Bedside Urine pH (Lab) 5.5 5-9 Urine Culture And 04/03/2018 Urine Culture SEE RESULT 9, 10 Sensitivities BELOW pH Ur Strip.auto 11/14/2017 pH Ur Strip.auto 6.5 6.5-7.5 Urobilinogen Ur 11/14/2017 Urobilinogen Ur 1.0 0.2-1.0 Strip-aCnc Strip-aCnc Urine total 11/14/2017 Urine total Small High Negative bilirubin detection bilirubin detection by automated test by automated test strip Urine human 11/14/2017 Urine human Negative Negative chorionic chorionic gonadotropin (hCG) gonadotropin (hCG) detection detection Urine hemoglobin 11/14/2017 Urine hemoglobin Large High Negative detection by detection by automated test strip automated test strip Urine glucose 11/14/2017 Urine glucose Negative Negative measurement by measurement by automated test strip automated test strip (mass/volume) Urine appearance 11/14/2017 Urine appearance Cloudy Clear determination determination Unloinc 11/14/2017 Unloinc Culture To Follow Specific gravity of 11/14/2017 Specific gravity of 1.025 1.010-1.030 Urine by Automated Urine by Automated test strip test strip Prot Ur 11/14/2017 Prot Ur 100 High Negative Strip.auto-mCnc Strip.auto-mCnc Nitrite Ur Ql 11/14/2017 Nitrite Ur Ql Positive High Negative Strip.auto Strip.auto Leukocyte esterase 11/14/2017 Leukocyte esterase Moderate High Negative Ur Ql Strip.auto Ur Ql Strip.auto Ketones Ur 11/14/2017 Ketones Ur Negative Negative Strip.auto-mCnc Strip.auto-mCnc Color Ur 11/14/2017 Color Ur DK Yellow Yellow Serum or plasma 08/27/2017 Serum or plasma 86 45-117 alkaline phosphatase alkaline phosphatase measurement ( measurement (enzymatic activity/volume) Serum or plasma 08/27/2017 Serum or plasma 3.3 Low 3.4-5.0 albumin measurement albumin measurement (mass/volume) (mass/volume) Serum or plasma 08/27/2017 Serum or plasma 22.7 Low 30.0-100.0 25-hydroxyvitamin D 25-hydroxyvitamin D measurement (m measurement (mass/volume) Serum carbon dioxide 08/27/2017 Serum carbon dioxide 27 21-32 measurement measurement RDW RBC Auto-Rto 08/27/2017 RDW RBC Auto-Rto 15.8 High 11.7-14.4 RDW RBC Auto 08/27/2017 RDW RBC Auto 45.5 3-47 Potassium SerPl-sCnc 08/27/2017 Potassium SerPl-sCnc 4.3 3.5-5.1 Neutrophils/leuk NFr 08/27/2017 Neutrophils/leuk NFr 59.6 40.4-72.8 Bld Auto Bld Auto Neutrophils # Bld 08/27/2017 Neutrophils # Bld 3.26 1.8-7.0 Auto Auto Monocytes/leuk NFr 08/27/2017 Monocytes/leuk NFr 6.6 4.3-13.2 Bld Auto Bld Auto Lymphocytes/leuk NFr 08/27/2017 Lymphocytes/leuk NFr 30.3 20.0-42.0 Bld Auto Bld Auto Globulin Ser 08/27/2017 Globulin Ser 4.1 1.9-4.3 Calc-mCnc Calc-mCnc Serum or plasma 08/27/2017 Serum or plasma 14 Low 15-37 aspartate aspartate aminotransferase aminotransferase measure measurement (enzymatic activity/volume) Serum or plasma 08/27/2017 Serum or plasma 8.7 8.5-10.1 calcium measurement calcium measurement (mass/volume) (mass/volume) Serum or plasma 08/27/2017 Serum or plasma 0.8 0.6-1.3 creatinine creatinine measurement measurement (mass/volum (mass/volume) Serum or plasma 08/27/2017 Serum or plasma 98 74-106 glucose measurement glucose measurement (mass/volume) (mass/volume) Serum or plasma iron 08/27/2017 Serum or plasma iron 383 250-450 binding capacity binding capacity measurement measurement (mass/volume) Serum or plasma iron 08/27/2017 Serum or plasma iron 25 Low 50-170 measurement measurement (mass/volume) (mass/volume) Serum or plasma iron 08/27/2017 Serum or plasma iron 7 Low 12-57 saturation saturation measurement (mass measurement (mass fraction) Serum or plasma 08/27/2017 Serum or plasma 2.2 1.8-2.4 magnesium magnesium measurement measurement (mass/volume (mass/volume) Serum or plasma 08/27/2017 Serum or plasma 7.4 6.4-8.2 protein measurement protein measurement (mass/volume) (mass/volume) Serum or plasma 08/27/2017 Serum or plasma 0.2 0.2-1.0 total bilirubin total bilirubin measurement (mass/ measurement (mass/volume) Serum or plasma urea 08/27/2017 Serum or plasma urea 15 7-18 nitrogen measurement nitrogen measurement (mass/vo (mass/volume) Serum sodium 08/27/2017 Serum sodium 139 136-145 measurement measurement TSH SerPl-aCnc 08/27/2017 TSH SerPl-aCnc 1.34 0.30-4.20 CBS W/Automated Diff 08/27/2017 White Blood Count 5.5 K/uL 3.1-10.7 11 Red Blood Count 4.48 M/uL 3.90-5.40 11 Hemoglobin 11.3 gm/dL Low 11.6-15.8 11 Hematocrit 36.4 % 36.0-46.1 11 Mean Cell Volume 81.3 fl 80.9-99.0 11 Mean Corpuscular HGB 25.2 pg Low 25.9-32.7 11 Mean Corpuscular HGB Conc 31.0 g/dL 30.8-34.3 11 Platelet Count 366 K/uL High 155-360 11 Red Cell Distri Width SD 45.5 fl 3-47 11 Red Cell Distri Width %CV 15.8 % High 11.7-14.4 11 Mean Platelet Volume 9.4 fL 8.9-12.4 11 Neut% 59.6 % 40.4-72.8 11 Lymph % 30.3 % 20.0-42.0 11 [place] % 6.6 % 4.3-13.2 11 Eo% 3.1 % 0.0-6.6 11 Bas% 0.4 % 0.0-1.1 11 Neut# 3.26 K/uL 1.8-7.0 11 Lymph # 1.66 K/uL 1.0-4.0 11 [place] # 0.36 K/uL 0.3-0.9 11 Eos # 0.17 K/uL 0.0-0.5 11 Baso # 0.02 K/uL 0.0-0.1 11 TSH Reflex FT4 And/Or FT3 08/27/2017 Thyroid Stim Hormone 1.34 uIU/mL 0.30-4.20 11 Reflex add FT3? Y 11 Reflex add FT4? Y 11 Comprehensive Metabolic Panel 08/27/2017 Glucose 98 mg/dL 74-106 11 BUN 15 mg/dL 7-18 11 Creatinine 0.8 mg/dL 0.6-1.3 11 Glom Filtration Rate, Estimate >60 mL/min >60 11 If >60 mL/min >60 11, 12 BUN/Creat 18.7 ratio 11 Sodium 139 mmol/L 136-145 11 Potassium 4.3 mmol/L 3.5-5.1 11 Chloride 108 mmol/L High 98-107 11 Carbon Dioxide 27 mmol/L 21-32 11 Anion Gap 4 mEq/L Low 8-16 11 Calcium 8.7 mg/dL 8.5-10.1 11 Total Protein 7.4 g/dL 6.4-8.2 11 Albumin 3.3 g/dL Low 3.4-5.0 11 Globulin 4.1 g/dL 1.9-4.3 11 Alb/Glob 0.8 ratio 11 Bilirubin,Total 0.2 mg/dL 0.2-1.0 11 Sgot/Ast 14 U/L Low 15-37 11, 13 SGPT/Alt 19 U/L 12-78 11 Alkaline Phosphatase 86 U/L 45-117 11 Reflex add FT3? Y 11 Reflex add FT4? Y 11 Laboratory test 08/27/2017 Vitamin D,25-Hydroxy 22.7 ng/mL Low 30.0-100.0 11, 14 finding Magnesium 08/27/2017 Magnesium 2.2 mg/dL 1.8-2.4 11 Reflex add FT3? Y 11 Reflex add FT4? Y 11 Iron-Tibc-%Sat 08/27/2017 Serum Iron 25 g/dL Low 50-170 11 Total Iron Binding Capacity 383 g/dL 250-450 11 Transferrin %Saturation 7 % Low 12-57 11 Reflex add FT3? Y 11 Reflex add FT4? Y 11 Alt SerPl-cCnc 08/27/2017 Alt SerPl-cCnc 19 12 Albumin/Glob SerPl 08/27/2017 Albumin/Glob SerPl 0.8 Anion Gap SerPl-sCnc 08/27/2017 Anion Gap SerPl-sCnc 4 Low 8-16 Automated blood 08/27/2017 Automated blood basophil 0.02 0.0-0.1 basophil count count (count/volume) (count/volume) Automated blood 08/27/2017 Automated blood 0.17 0.0-0.5 eosinophil count eosinophil count Automated blood 08/27/2017 Automated blood 36.4 36.0-46.1 hematocrit (volume hematocrit (volume fraction) fraction) Automated blood 08/27/2017 Automated blood 1.66 1.0-4.0 lymphocyte count lymphocyte count (number/volume) (number/volume) Eosinophil/leuk NFr Bld 08/27/2017 Eosinophil/leuk NFr Bld 3.1 0.0-6.6 Auto Auto Chloride SerPl-sCnc 08/27/2017 Chloride SerPl-sCnc 108 High 98-107 Blood monocytes 08/27/2017 Blood monocytes 0.36 0.3-0.9 automated count automated count (number/volume) (number/volume) Blood leukocytes 08/27/2017 Blood leukocytes 5.5 3.1-10.7 automated count automated count (number/volume) (number/volume) Blood hemoglobin 08/27/2017 Blood hemoglobin 11.3 Low 11.6-15.8 measurement measurement (mass/volume) (mass/volume) Blood erythrocytes 08/27/2017 Blood erythrocytes 4.48 3.90-5.40 automated count automated count (number/volume) (number/volume) Basophils/leuk NFr Bld 08/27/2017 Basophils/leuk NFr Bld 0.4 0.0-1.1 Auto Auto BUN/Creat SerPl 08/27/2017 BUN/Creat SerPl 18.7 Automated erythrocyte 08/27/2017 Automated erythrocyte 81.3 80.9-99.0 mean corpuscular volume mean corpuscular volume Automated erythrocyte 08/27/2017 Automated erythrocyte 31.0 30.8-34.3 mean corpuscular mean corpuscular hemoglobin hemoglobin concentration measurement (mass/volume) Automated erythrocyte 08/27/2017 Automated erythrocyte 25.2 Low 25.9-32.7 mean corpuscular mean corpuscular hemoglobin hemoglobin (mass per erythrocyte) Automated blood 08/27/2017 Automated blood platelet 9.4 8.9-12.4 platelet mean volume mean volume measurement measurement Automated blood 08/27/2017 Automated blood platelet 366 High 155-360 platelet count count CBS W/Automated Diff 04/30/2017 White Blood Count 5.5 K/uL 3.1-10.7 15 Red Blood Count 4.14 M/uL 3.90-5.40 15 Hemoglobin 10.8 gm/dL Low 11.6-15.8 15 Hematocrit 34.1 % Low 36.0-46.1 15 Mean Cell Volume 82.4 fl 80.9-99.0 15 Mean Corpuscular HGB 26.1 pg 25.9-32.7 15 Mean Corpuscular HGB Conc 31.7 g/dL 30.8-34.3 15 Platelet Count 304 K/uL 150-400 15 Red Cell Distri Width SD 44.8 fl 3-47 15 Red Cell Distri Width %CV 15.4 % High 11.7-14.4 15 Mean Platelet Volume 9.0 fL 8.9-12.4 15 Neut% 54.2 % 40.4-72.8 15 Lymph % 35.0 % 20.0-42.0 15 [place] % 7.9 % 4.3-13.2 15 Eo% 2.7 % 0.0-6.6 15 Bas% 0.2 % 0.0-1.1 15 Neut# 2.96 K/uL 1.8-7.0 15 Lymph # 1.91 K/uL 1.0-4.0 15 [place] # 0.43 K/uL 0.3-0.9 15 Eos # 0.15 K/uL 0.0-0.5 15 Baso # 0.01 K/uL 0.0-0.1 15 Ua RFX Micro & Culture II 04/30/2017 Urine Color YELLOW Yellow 15 Urine Clarity CLOUDY Clear 15 Urine Glucose - Dipstick NEGATIVE mg/dL Negative 15 Urine Bilirubin - Dipstick NEGATIVE Negative 15 Urine Ketone NEGATIVE mg/dL Negative 15 Urine Specific [place] 1.015 1.010-1.030 15 Urine Blood NEGATIVE Negative 15 Urine PH 8.0 High 6.5-7.5 15 Urine Protein - Dipstick TRACE mg/dL Negative 15 Urine Urobilinogen - Dipstick 0.2 E.U./dL 0.2-1.0 15 Urine Nitrite - Dipstick NEGATIVE Negative 15 Urine Leuk Esterase NEGATIVE Negative 15 Source: URINE, CLEAN CAT <SEE NOTE> 15, 16 Iron-Tibc-%Sat 01/22/2017 Serum Iron 22 g/dL Low 50-170 17 Total Iron Binding Capacity 366 g/dL 250-450 17 Transferrin %Saturation 6 % Low 12-57 17 Laboratory test finding 01/22/2017 Sedimentation Rate 48 mm/hr High 0-20 17, 18 C-Reactive Protein,Quant 15.5 mg/L High <3.0 17 Celiac Disease Comp AB Profile 01/22/2017 Immunoglobulin A 188 mg/dL 87- 352 17 Antigliadin Abs, IgG 3 units 0-19 17, 19 Antigliadin Abs, IgA 8 units 0-19 17, 20 Endomysial IgA Antibody Negative Negative 17 t-Transglutaminase IgA <2 U/mL 0-3 17, 21 t-Transglutaminase IgG <2 U/mL 0-5 17, 22 1 Fire Extinguisher Mechanic: [id number] Fire Extinguisher Mechanic: [id number] Z00.00 4 Negative <9.0 Equivocal 9.0 - 10.9 Positive >10.9 A positive result generally indicates past exposure to Mumps virus or previous vaccination. 5 Non-immune <0.90 Equivocal 0.90 - 0.99 Immune >0.99 Performed at: RN - [facility] [address] [id number] Campus Rep: Arianna Ho MD, Phone: [phone] 6 Negative <25.0 Equivocal 25.0 - 29.9 Positive >29.9 Presence of antibodies to Rubeola is presumptive evidence of immunity except when acute infection is suspected. Performed at: [address] [id number] Campus Rep: Arianna Ho MD, Phone: [phone] 7 Fire Extinguisher Mechanic: [id number] If is still suspected, please repeat test after 48 to 72 hours. 8 Fire Extinguisher Mechanic: [id number] SEE RESULT BELOW Name: ADDIE COBOS : [address]: Aaliyah Coreas MD Acct: [id number] Unit: [id number] AGE: 33 Location: [facility] Re04/03/18 SEX: F Status: DEP ER SPEC: [id number] DEYVI: 04/03/18-1350 [facility] DR: Hafsa Dee NP REQ: [id number] RECD: 04/04/18 STATUS: ROSIO CARMONA DR: Shanita Coreas MD _ SOURCE: URINE SPDESC: ORDERED: Urine Culture COMMENTS: [id number] Procedure Result Reported Site Urine Culture Final 04/05/18- 1323 ML No growth of clinically significant organisms * ML - Main Lab . END OF REPORT DEPARTMENT OF PATHOLOGY, [address] [place] [address] Chaka Barrios M.D. Director [facility] # [id number] 11 F43.10 K21.9 D50.9 12 Note: Persistent reduction for 3 months or more in an eGFR <60 mL/min/1.73 m2 defines CKD. Patients with eGFR values >/=60 mL/min/1.73 m2 may also have CKD if evidence of persistent proteinuria is present. The original MDRD equation for estimated GFR is not valid for patients less than 18 years of age. Additional information may be found at www.kdoqi.org. 13 Values below the stated reference ranges of AST and ALT can be seen in normal populations. Clinical correlation is suggested. 14 Vitamin D deficiency has been defined by the [place] of [employer] and an Endocrine Society practice guideline as a level of serum 25-OH vitamin D less than 20 ng/mL (1,2). The Endocrine Society went on to further define vitamin D insufficiency as a level between 21 and 29 ng/mL (2). 1. IOM ([place] of [employer]). 2010. Dietary reference intakes for calcium and D. [place]: The National Academies Press. 2. Iman MF, Lore MARTINEZ, Dori WEBSTER, et al. Evaluation, treatment, and prevention of vitamin D deficiency: an Endocrine Society clinical practice guideline. JCEM. 2010; 96(7):1911-30. Performed at: - [facility] [id number] Campus Rep: Arianna Ho MD, Phone: [phone] STOMACH PAIN 16 URINE, CLEAN CATCH 17 R19.7 18 Method: Sediplast Modified Westergren 19 Negative 0 - 19 Weak Positive 20 - 30 Moderate to Strong Positive >30 20 Negative 0 - 19 Weak Positive 20 - 30 Moderate to Strong Positive >30 21 Negative 0 - 3 Weak Positive 4 - 10 Positive >10 Tissue Transglutaminase (tTG) has been identified as the endomysial antigen. Studies have demonstr- ated that endomysial IgA antibodies have over 99% specificity for gluten sensitive enteropathy. 22 Negative 0 - 5 Weak Positive 6 - 9 Positive >9 Performed at: - [facility] [address] [id number] Campus Rep: Arianna Ho MD, Phone: [phone] Procedures Date CPT Code Description Status 07/07/2018 33165 Brief Emotional/Behav Assessment W/ Scoring Doc Per Completed Standard Inst 09/30/2017 69623 Colposcopy With Biopsy Completed 08/31/2015 Mammogram Completed 07/06/2013 38172 EKG-Tracing And Report Completed 07/06/2013 23263 EKG-Tracing And Report Completed 06/17/2013 10384 Event Monitor Inter/Review Only Completed 02/05/2009 22742 EGD With Biopsy Completed Encounters Type Date Location Provider CPT E/M Dx Office Visit 07/07/2018 4:00p Family Medicine Ivy Briceño FNP 51313 F41.1 Office Visit 06/16/2018 4:00p Family Medicine Family Nurse 13758 Z11.1 Office Visit 06/14/2018 3:00p Family Medicine Ivy Briceño FNP 74952 Z02.1 F41.1 L30.9 Z11.1 Office Visit 05/31/2018 3:30p Family Medicine Ivy Briceño, [facility] 54914 J01.90 H10.022 Office Visit 09/30/2017 11:30a Family Medicine Shanita Ramon M.D. 37459 R87.610 R87.810 F43.10 Office Visit 08/27/2017 10:15a Family [facility] Shanita Ramon M.D. 72191 F43.10 K21.9 J45.20 G43.009 R87.619 Office Visit 06/19/2017 9:30a Orthopaedic Office Nikki Henao, 46159 M25.531 [facility] M25.531 M25.531 Office Visit 06/16/2017 1:15p [facility] Gianni Garcia [facility] [address] J45.20 G43.009 K21.9 F43.10 Office Visit 01/22/2017 9:15a [place] [address] R10.9 R19.7 Office Visit 07/06/2013 2:00p Cardiology Office Ludy Gutierrez, [address] 785.1 [facility] [place], [facility] [phone] Office Visit 06/17/2013 4:57p Cardiology Office Manjeet Lay, [address] 785.1 [place], [facility] [phone] Office Visit 02/20/2009 1:45p [place] [address] [phone] Office Visit 12/07/2008 10:20[place] [address] [phone] Plan of Care Future Appointment(s):09/07/2018 4:00 pm - Ivy Briceño FNP at [facility]
[2018-07-19 09:15] VITALS: BP 147/79
--- NOTE | 2018-07-19 09:39 | UC ---
Throat Pain/Nasal Haris HPI - HPI Summary HPI Summary: 33-year-old female presents with 3-4 day history of sore throat. She was previously seen at this facility on 07/03/2018 and diagnosed with strep throat. She was prescribed a 10 day course of Pen-Vee K however she only completed about 7 days of this prescription. States she stopped because she developed profuse watery diarrhea which she continues to have. She states approximately 2 weeks prior to that evaluation she had been seen by her primary care provider and placed on a ten-day course of amoxicillin for an upper respiratory infection which she did complete. Denies fever, chills, nasal congestion, nasal drainage, ear pain, dysphagia, cough, chest pain, shortness of breath, abdominal pain, nausea, or vomiting. - History of Current Complaint Chief Complaint: UCGeneralIllness Stated Complaint: ST Time Seen by Provider: 07/19/18 09:15 Hx Obtained From: Patient Hx Last Menstrual Period: unknown, depo shot ?: No Onset/Duration: Gradual Onset, Lasting Days Severity: Mild Pain Intensity: 3 Cough: None Associated Signs & Symptoms: Negative: Dysphagia, Wheezing, Hoarseness, Sinus Discomfort, Nasal Discharge, Fever, Vomiting, Rash - Allergies/Home Medications Allergies/Adverse Reactions: Allergies Allergy/AdvReac Type Severity Reaction Status Date / Time No Known Allergies Allergy Verified 07/19/18 09:12 PMH/Surg Hx/FS Hx/Imm Hx Previously Healthy: Yes Psychological History: Depression - Surgical History Surgical History: Yes Surgery Procedure, Year, and Place: gallbladder. 2 c-sections - Family History Known Family History: Positive: Cardiac Disease - Social History Occupation: Employed Full-time Lives: With Family Alcohol Use: Rare Substance Use Type: None Smoking Status (MU): Former Smoker Have You Smoked in the Last Year: No - Immunization History Most Recent Tetanus Shot: UTD Review of Systems All Other Systems Reviewed And Are Negative: Yes Constitutional: Negative: Fever, Chills Skin: Negative: Rash Eyes: Negative: Drainage, Eye Redness ENT: Positive: Sore Throat. Negative: Ear Ache, Nasal Discharge, Sinus Congestion Respiratory: Negative: Shortness Of Breath, Cough Cardiovascular: Negative: Palpitations, Chest Pain Gastrointestinal: Positive: Diarrhea. Negative: Abdominal Pain, Vomiting, Nausea Is Patient Immunocompromised?: No Physical Exam Triage Information Reviewed: Yes Appearance: Well-Appearing, No Pain Distress, Obese Vital Signs: Initial Vital Signs Temp 97.9 F 07/19/18 09:10 Pulse 86 07/19/18 09:10 Resp 16 07/19/18 09:10 BP 147/79 07/19/18 09:10 Pulse Ox 100 07/19/18 09:10 Eye Exam: Normal Eyes: Positive: Conjunctiva Clear. Negative: Discharge ENT: Positive: Pharyngeal erythema, TMs normal, Tonsillar swelling, Tonsillar exudate, Uvula midline. Negative: Nasal congestion, Nasal drainage, Trismus, Muffled voice, Sinus tenderness Neck: Positive: Supple, Nontender, No Lymphadenopathy Respiratory: Positive: Chest non-tender, Lungs clear, Normal breath sounds, No respiratory distress Cardiovascular: Positive: RRR, No Murmur, Pulses Normal, Brisk Capillary Refill Abdomen Description: Positive: Nontender, No Organomegaly, Soft. Negative: Distended, Guarding Bowel Sounds: Positive: Present Neurological: Positive: Alert Skin Exam: Normal Diagnostics - Laboratory Diagnostic Studies Completed/Ordered: Rapid strep negative Throat Pain/Nasal Course/Dx - Course Course Of Treatment: 33-year-old female presents with 3-4 day history of sore throat. Previously seen at this facility on 07/03/2018 and diagnosed with strep throat and prescribed a 10 day course of Pen-Vee K however she only completed about 7 days of this prescription d/t developing profuse watery diarrhea which she continues to have. She states approximately 2 weeks prior to that evaluation she had been seen by her primary care provider and placed on a ten- day course of amoxicillin for an upper respiratory infection which she did complete. Her POC rapid strep was positive and exam consistent with strep pharyngitis. Will treat with 10 day course of cefdinir. She recommended probiotic for diarrhea and given stool collection kit to check for C-diff. Referral made to ENT for further evalation of her recurrent strep. Warning symptoms reviewed. Verbalizes understanding and agrees with POC. - Differential Dx/Diagnosis Differential Diagnosis/HQI/PQRI: Mononucleosis, Pharyngitis, Tonsillitis, URI Provider Diagnoses: strep pharyngitis Discharge - Sign-Out/Discharge Documenting (check all that apply): Patient Departure All imaging exams completed and their final reports reviewed: No Studies - Discharge Plan Condition: Stable Disposition: HOME Prescriptions: Cefdinir [Cefdinir 300 MG CAP] 300 mg PO BID #20 capsule Patient Education Materials: Strep Throat (ED) Referrals: Shanita Ramon MD [Primary Care Provider] - () Boris Hartman MD [Medical Doctor] - 2 Weeks (Call for appointment) Additional Instructions: Your rapid strep test in the clinic today was positive. Start cefdinir 1 tab twice a day for 10 days. It is extremely important that you finish the entire course even if you are feeling better. After you have been on your antibiotic for 3 days change your toothbrush to avoid reinfection. Change your pillow case each morning. Use salt water gargles several times a day for your sore throat. Take acetaminophen (Tylenol) or ibuprofen (Advil, Motrin) according to directions as needed for fever or pain. You may also use Chloraseptic spray or Cepacol lozenges for some temporary pain relief from your sore throat. Follow-up with Dr Hartman, ENT, within 2 weeks for evaluation of recurrent strep. We will send you home with a collection kit to check for C. diff infection as the cause of your diarrhea since you have been on a couple courses of antibiotics. Take a probiotic or eat a cup of yogurt every day while taking the antibiotic. Seek immediate medical attention if you have a persistent fever greater than 100.5 F despite taking acetaminophen or ibuprofen, you are unable to swallow, has difficulty breathing, or have any worsening of symptoms. - Billing Disposition and Condition Condition: STABLE Disposition: Home - Attestation Statements Provider Attestation: I was available for consult. This patient was seen by the KATHY. The patient was not presented to, seen by, or examined by me. -Robert
== END 2018-07-19 10:16 | disposition home or self-care (01) ==
LOC: UCCORT 09:05
DX: J02.0 Streptococcal pharyngitis (principal); N95.0 Postmenopausal bleeding; Z87.891 Personal history of nicotine dependence
CPT/HCPCS: 87651; 99212; G0463

== ENCOUNTER 2018-09-14 11:43 | Emergency (ER) | payer OTHER ==
[2018-09-14 12:47] VITALS: BP 133/65
--- NOTE | 2018-09-14 13:06 | UC ---
Throat Pain/Nasal Haris HPI - HPI Summary HPI Summary: nasal congestion / cough x 7 days sinus pressure, pnd, no fever, no chills had similar symptoms 4 weeks ago , was getting better but symptoms returned 7 days ago no sore throat, no body aches - History of Current Complaint Chief Complaint: UCRespiratory Stated Complaint: COUGH WHEEZY Time Seen by Provider: 09/14/18 12:38 Hx Obtained From: Patient Hx Last Menstrual Period: No menses since off depo inj in JUL 2018 Onset/Duration: Gradual Onset, Lasting Days - 7, Still Present Severity: Moderate Pain Intensity: 0 Cough: Nonproductive Associated Signs & Symptoms: Positive: Sinus Discomfort, Nasal Discharge. Negative: Wheezing, Fever, Vomiting - Allergies/Home Medications Allergies/Adverse Reactions: Allergies Allergy/AdvReac Type Severity Reaction Status Date / Time No Known Allergies Allergy Verified 09/14/18 12:42 Home Medications: Home Medications LORazepam TAB(*) [Ativan 1 MG TAB (*)] 1 mg BID 09/14/18 [History Confirmed ] PMH/Surg Hx/FS Hx/Imm Hx Respiratory History: Asthma - Surgical History Surgical History: Yes Surgery Procedure, Year, and Place: gallbladder. 2 c-sections - Family History Known Family History: Positive: Cardiac Disease - Social History Alcohol Use: Rare Substance Use Type: None Smoking Status (MU): Former Smoker Have You Smoked in the Last Year: No - Immunization History Most Recent Tetanus Shot: UTD Review of Systems All Other Systems Reviewed And Are Negative: Yes Constitutional: Positive: Negative Skin: Positive: Negative Eyes: Positive: Negative ENT: Positive: Nasal Discharge, Sinus Congestion, Sinus Pain/Tenderness Respiratory: Positive: Cough Cardiovascular: Positive: Negative Is Patient Immunocompromised?: No Physical Exam Triage Information Reviewed: Yes Appearance: Well-Appearing, No Pain Distress, Well-Nourished Vital Signs: Initial Vital Signs Temp 98.9 F 09/14/18 12:43 Pulse 96 09/14/18 12:43 Resp 16 09/14/18 12:43 BP 133/65 09/14/18 12:43 Pulse Ox 100 09/14/18 12:43 Vital Signs Reviewed: Yes Eye Exam: Normal Eyes: Positive: Conjunctiva Clear ENT: Positive: Normal ENT inspection, Hearing grossly normal, Nasal congestion, Nasal drainage, TMs normal. Negative: TM bulging, TM dull, TM red, Sinus tenderness Neck: Positive: Supple, Nontender, No Lymphadenopathy Respiratory Exam: Normal Respiratory: Positive: Chest non-tender, Lungs clear, Normal breath sounds Cardiovascular: Positive: RRR, No Murmur, Pulses Normal Neurological Exam: Normal Psychological Exam: Normal Skin Exam: Normal Throat Pain/Nasal Course/Dx - Differential Dx/Diagnosis Provider Diagnosis: URI (upper respiratory infection) Discharge - Sign-Out/Discharge Documenting (check all that apply): Patient Departure All imaging exams completed and their final reports reviewed: No Studies - Discharge Plan Condition: Stable Disposition: HOME Prescriptions: Benzonatate CAP* [Tessalon 100 MG CAP*] 100 mg PO TID PRN #21 cap PRN Reason: Cough Patient Education Materials: Upper Respiratory Infection (DC) Referrals: Shanita Ramon MD [Primary Care Provider] - 7 Days - Billing Disposition and Condition Condition: STABLE Disposition: Home
== END 2018-09-14 13:09 | disposition home or self-care (01) ==
LOC: UCCORT 11:43
DX: Z87.891 Personal history of nicotine dependence (principal); J06.9 Acute upper respiratory infection, unspecified
CPT/HCPCS: 99212; G0463

== ENCOUNTER 2019-01-17 12:34 | Emergency (ER) | payer OTHER ==
[2019-01-17 12:55] VITALS: BP 128/78
--- NOTE | 2019-01-17 13:12 | ED ---
Skin Complaint - HPI Summary HPI Summary: 33 yr old female with the complaint of itchy, and scab like rash on the arms and the legs. It is very itchy. The patient has ongoing exposure to scabies in her house where she lives with other people. She is very itchy. SYmptoms began several days ago. Symptoms are moderate. - History of Current Complaint Chief Complaint: UCSkin Time Seen by Provider: 01/17/19 13:04 Stated Complaint: SKIN CONCERN Hx Last Menstrual Period: unknown Pain Intensity: 0 - Allergy/Home Medications Allergies/Adverse Reactions: Allergies Allergy/AdvReac Type Severity Reaction Status Date / Time No Known Allergies Allergy Verified 01/17/19 12:58 Home Medications: Home Medications Metoclopramide TAB* [Reglan TAB*] 10 mg PO QID 01/17/19 [History Confirmed 01/17] Pantoprazole TAB * [Protonix TAB*] 40 mg PO ONCE 01/17/19 [History Confirmed ] Sucralfate TAB* [Carafate*] 1 gm PO QID 01/17/19 [History Confirmed 01/17/19] Topiramate TAB(*) [Topamax 25 MG tab] 50 mg PO BID 01/17/19 [History Confirmed 01/17/19] PMH/Surg Hx/FS Hx/Imm Hx Endocrine/Hematology History: Denies: Hx Diabetes, Hx Thyroid Disease Cardiovascular History: Denies: Hx Hypertension Respiratory History: Reports: Hx Asthma Denies: Hx Chronic Obstructive Pulmonary Disease (COPD) GI History: Denies: Hx Ulcer - Surgical History Surgery Procedure, Year, and Place: cholycystecomy. 2 c-sections Infectious Disease History: No Infectious Disease History: Denies: Hx Clostridium Difficile, Hx Hepatitis, Hx Human Immunodeficiency Virus (HIV), Hx of Known/Suspected MRSA, Hx Tuberculosis, Hx Known/Suspected VRE , Hx Known/Suspected VRSA, Traveled Outside the [place] in Last 30 Days - Family History Known Family History: Positive: Cardiac Disease - Social History Occupation: Employed Full-time Alcohol Use: Rare Substance Use Type: Reports: None Smoking Status (MU): Former Smoker Have You Smoked in the Last Year: No Review of Systems Positive: Chills, Fatigue Positive: Nasal Discharge, Other - sinus pressure Positive: Cough All Other Systems Reviewed And Are Negative: Yes Physical Exam Triage Information Reviewed: Yes Vital Signs On Initial Exam: Initial Vitals Temp Pulse Resp BP Pulse Ox 98.6 F 96 18 128/78 99 01/17/19 12:48 01/17/19 12:48 01/17/19 12:48 01/17/19 12:48 01/17/19 12:48 Vital Signs Reviewed: Yes Appearance: Positive: Well-Appearing, No Pain Distress Skin: Positive: Warm, Skin Color Reflects Adequate Perfusion, Benny Tracts - arms and legs. with scabs., Other Head/Face: Positive: Normal Head/Face Inspection Eyes: Positive: EOMI ENT: Positive: Pharynx normal Neck: Positive: Nontender Respiratory/Lung Sounds: Positive: Clear to Auscultation, Breath Sounds Present Cardiovascular: Positive: RRR. Negative: Murmur Abdomen Description: Negative: Distended Musculoskeletal: Positive: Strength/ROM Intact Neurological: Positive: Sensory/Motor Intact, Alert, Oriented to Person Place, Time, CN Intact II-III, Normal Gait, Speech Normal Psychiatric: Positive: Normal - Barbara Coma Scale Best Eye Response: 4 - Spontaneous Best Motor Response: 6 - Obeys Commands Best Verbal Response: 5 - Oriented Coma Scale Total: 15 Diagnostics - Vital Signs Vital Signs Temp Pulse Resp BP Pulse Ox 01/17/19 12:48 98.6 F 96 18 128/78 99 - Laboratory Lab Statement: Any lab studies that have been ordered have been reviewed, and results considered in the medical decision making process. Course/Dx - Course Course Of Treatment: 33 yr old with scabies. elimite ordered. DC home. - Diagnoses Provider Diagnoses: Scabies Discharge - Sign-Out/Discharge Documenting (check all that apply): Patient Departure All imaging exams completed and their final reports reviewed: No Studies - Discharge Plan Condition: Good Disposition: HOME Prescriptions: Permethrin [Elimite] 60 gm TP ONCE #60 cream..g. Patient Education Materials: Scabies (ED) Referrals: Ivy Briceño NP [Primary Care Provider] - 2 Days - Billing Disposition and Condition Condition: GOOD Disposition: Home
== END 2019-01-17 13:21 | disposition home or self-care (01) ==
LOC: UCCORT 12:34
DX: B86 Scabies (principal); J45.909 Unspecified asthma, uncomplicated; Z87.891 Personal history of nicotine dependence
CPT/HCPCS: 99212; G0463

== ENCOUNTER 2019-09-15 17:27 | Emergency (ER) | payer OTHER ==
--- OUTSIDE RECORDS SUMMARY | 2019-09-15 17:51 | XMS REPORT | Continuity of Care Document ---
:1985 External Reference #:[id number] Author Name Ivy Briceño FNP (transmitted by agent of provider Nu Coreas) Address [address] [place] [id number] Problems Active Problems Provider Date Palpitations Ludy Gutierrez, MARSHALL, Onset: 07/06/2013 [employer] Dyspnea GutierrezLudy vernon, MARSHALL, Onset: 07/06/2013 [employer] Abdominal pain Ludy Gutierrez MSN, Onset: 07/06/2013 [employer] Dizziness and giddiness Ludy Gutierrez, MARSHALL, Onset: 07/06/2013 [employer] Chest pain Ludy Gutierrez MSN, Onset: 07/06/2013 [employer] Mild intermittent asthma Gianni Garcia FNP Onset: 06/16/2017 Migraine without aura, not refractory Gianni Garcia FNP Onset: 2016 Gastroesophageal reflux disease Gianni Garcia FNP Onset: 06/16/2017 Posttraumatic stress disorder Gianni Garcia FNP Onset: 06/16/2017 Cystitis Shanthi Garcia M.D. Onset: 03/31/2019 Social History Type Date Description Comments Sex Unknown Tobacco Use Start: Unknown End: Quit Unknown Smokeless Tobacco Never Used Smokeless Tobacco ETOH Use Rarely consumes alcohol Tobacco Use Start: Unknown End: Patient is a former smoker QUIT 2008 Unknown Recreational Drug Use Denies Drug Use Tobacco Use Start: Unknown Patient is a current smoker, smokes every day Smoking Status Reviewed: 08/22/19 Patient is a current smoker, smokes every day Allergies, Adverse Reactions, Alerts Description No Known Drug Allergies Medications Active Medications SIG Qnty Indications Ordering Date Provider Oxybutynin Chloride 1 by mouth every 30tabs Radha, 06/23/2019 ER day Fransico Maki 10mg Tablets ER 24HR Elmiron 2 tabs by mouth 180caps Radha, 05/17/2019 100mg three times a day Fransico Maki Capsules Hydroxyzine HCL Take 1 tab at 60tabs Radha, 05/17/2019 25mg bedtime for 1 week Fransico Maki Tablets then 2 tabs after Ondansetron HCL Take 1 Tablet By 30tabs Ivy Briceño, 04/21/2019 4mg Mouth Every 8 Hours [employer] Tablets If Needed For Nausea Fluconazole take 1 tablet by 1tabs Ivy Briceño, 04/12/2019 150mg mouth, one time. [employer] Tablets May repeat in 1 week if symptoms persist. Clonidine HCL take 1 tablet by 30tabs Ivy Briceño, 03/31/2019 0.1mg mouth 30 minutes to [employer] Tablets 1 hour before bedtime. Buspirone HCL 1 by mouth three 90tabs Ivy Briceño, 03/02/2019 15mg times a day [employer] Tablets Colace take 1 capsule by 60caps Ivy Briceño, 01/03/2019 100mg Capsules mouth daily as [employer] needed for constipation Sucralfate take 1 tablet by 60tabs Ivy Briceño, 1gm mouth twice daily [employer] Tablets Pantoprazole Sodium take 1 tablet by 30tabs Ivy Briceño, mouth once daily [employer] 40mg Tablets DR History Medications Phenazopyridine HCL 1 by mouth 3 60tabs Radha, 06/02/2019 - 100mg times a day when Fransico Maki 06/23/2019 Tablets necessary Sulfamethoxazole/Trimet 1 by mouth once 1tabs Radha, 03/31/2019 - hoprim DS given in office Fransico Maki 04/01/2019 800-160mg Tablets before procedure Darifenacin take 1 by mouth 30tabs N30.80 Radha, 03/31/2019 - Hydrobromide ER once daily Fransico Maki 06/23/2019 7.5mg Tablets ER 24HR Uribel 1 tab by mouth 30caps Radha, 03/15/2019 - 118mg Capsules up to four times Fransico Maki 06/23/2019 a day adalberto 1 Nitrofurantoin Monohyd 1 by mouth twice 30caps Radha, 03/15/2019 - Macro a day Fransico Maki 03/31/2019 100mg Capsules Medications Administered in Office Medication SIG Qnty Indications Ordering Provider Date PPD Injection Ivy Briceño FNP 06/14/2018 Immunizations Description No Information Available Vital Signs Date Vital Result Comment 06/14/2019 3:13pm BP Systolic 119 mmHg BP Diastolic 78 mmHg Body Temperature 98.4 F Heart Rate 79 /min Respiratory Rate 20 /min Height 60 inches 5'0" Weight 220.00 lb BMI (Body Mass Index) 43.0 kg/m2 BSA (Body Surface Area) 1.94 m2 [place] body weight in kilograms 45 kg O2 % BldC Oximetry 97 % 05/17/2019 2:28pm BP Systolic 118 mmHg BP Diastolic 81 mmHg Body Temperature 99.1 F Heart Rate 78 /min Respiratory Rate 17 /min Height 60 inches 5'0" Weight 213.25 lb Pain Level 10 Bladder BMI (Body Mass Index) 41.6 kg/m2 BSA (Body Surface Area) 1.92 m2 [place] body weight in kilograms 45 kg O2 % BldC Oximetry 93 % Results Test Acquired Date Facility Test Result H/L Range Note Urine Dipstick 06/14/2019 [facility] Color yellow Yellow Ua Clarity clear Clear Ua Leuko neg Negative Ua Nitrite neg Negative Ua Urobilinogen .2 0.2 - 1.0 E.U./dL Ua Protein neg Negative Ua PH 6.0 Low 6.5-7.5 Ua Blood neg Negative Ua Specific [place] 1.025 1.010-1.030 Ua Ketones neg Negative Ua Bilirubin neg Negative Ua Glucose neg Negative Urine Culture 06/09/2019 [facility] Urine Culture URETHRAL ANDREW [address] [place] [address] [phone] Quantity 10,000 - 50,000 <SEE NOTE> 2 Ua RFX Micro & 05/17/2019 [facility] Urine Color Dark-[place] Yellow 3 Culture II [address] [place] [address] [phone] Urine Clarity Clear Clear Urine Glucose - Dipstick NEGATIVE mg/dL Negative Urine Bilirubin - Dipstick SMALL Abnormal Negative Urine Ketone NEGATIVE mg/dL Negative Urine Specific [place] 1.020 Normal 1.010-1.030 Urine Blood NEGATIVE 0-2 Urine PH 6.5 Normal 6.5-7.5 Urine Protein - Dipstick NEGATIVE mg/dL Negative Urine Urobilinogen - Dipstick 6.0 mg/dL < 2.0 Urine Nitrite - Dipstick POSITIVE Abnormal Negative Urine Leuk Esterase NEGATIVE Negative Urine RBC 0-2 rbc/hpf 0-2 Urine WBC 0-2 wbc/hpf 0-5 Urine Epithelial Cells MANY /lpf None Seen Urine Bacteria FEW None Seen Urine Mucus FEW None Seen Source: URINE, CLEAN CAT <SEE NOTE> 4 Culture If 05/17/2019 [facility] Culture If CULTURE TO 5 Indicated Comment [address] Indicated Comment FOLLO <[place] [address] NOTE> [phone] Source: URINE, CLEAN CAT <SEE NOTE> 6 Urine Culture 05/17/2019 [facility] Urine Culture URETHRAL ANDREW [address] [place] [address] [phone] Quantity 10,000 - 50,000 <SEE NOTE> 7 Urine Dipstick 05/17/2019 [facility] Inhouse Ua Color [place] Yellow Ua Clarity Clear Clear Ua Leuko 125 High Negative Ua Nitrite Positive Negative Ua Urobilinogen 8 High 0.2 - 1.0 E.U./dL Ua Protein Negative Negative Ua PH 6.0 Low 6.5-7.5 Ua Blood Negative Negative Ua Specific [place] 1.020 1.010-1.030 Ua Ketones 5 High Negative Ua Bilirubin 4 High Negative Ua Glucose Negative Negative Urine Dipstick 03/31/2019 [facility] Inhouse Ua Color Blue Yellow Ua Clarity Clear Clear Ua Leuko Negative Negative Ua Nitrite Negative Negative Ua Urobilinogen 0.2 0.2 - 1.0 E.U./dL Ua Protein 15 High Negative Ua PH 6.5 6.5-7.5 Ua Blood Negative Negative Ua Specific [place] 1.020 1.010-1.030 Ua Ketones Negative Negative Ua Bilirubin Negative Negative Ua Glucose Negative Negative Urine Dipstick 03/15/2019 [facility] Inhouse Ua Color yellow Yellow Ua Clarity clear Clear Ua Leuko negative Negative Ua Nitrite negative Negative Ua Urobilinogen 0.2 0.2 - 1.0 E.U./dL Ua Protein negative Negative Ua PH 6.0 Low 6.5-7.5 Ua Blood negative Negative Ua Specific [place] 1.015 1.010-1.030 Ua Ketones negative Negative Ua Bilirubin negative Negative Ua Glucose negative Negative CBC W/Automated 03/14/2019 [facility] White Blood 4.2 K/uL Normal 3.1-10.[address] [place] [address] [phone] Red Blood Count 4.11 M/uL Normal 3.90-5.40 Hemoglobin 11.9 gm/dL Normal 11.6-15.8 Hematocrit 36.7 % Normal 36.0-46.1 Mean Cell Volume 89.3 fl Normal 80.9-99.0 Mean Corpuscular HGB 29.0 pg Normal 25.9-32.7 Mean Corpuscular HGB Conc 32.4 g/dL Normal 30.8-34.3 Platelet Count 289 K/uL Normal 155-360 Red Cell Distri Width SD 45.0 fl Normal 36-47 Red Cell Distri Width %CV 13.7 % Normal 11.7-14.4 Mean Platelet Volume 9.3 fl Normal 8.9-12.4 Neut% 56.1 % Normal 40.4-72.8 Lymph % 35.9 % Normal 20.0-42.0 [place] % 7.8 % Normal 4.3-13.2 Eo% 0.0 % Normal 0.0-6.6 Bas% 0.0 % Normal 0.0-1.1 Immature Grans 0.2 % Normal 0.0-5.0 NRBC % 0.0 /100WBC < 10/ 100 WBC Neut# 2.37 K/uL Normal 1.8-7.0 Lymph # 1.52 K/uL Normal 1.0-4.0 [place] # 0.33 K/uL Normal 0.3-0.9 Eos # 0.00 K/uL Normal 0.0-0.5 Baso # 0.00 K/uL Normal 0.0-0.1 Immature Grans Absolute 0.01 K/uL NRBC # 0.00 K/uL Comprehensive 03/14/2019 [facility] Glucose 99 mg/dL Normal 74-106 Metabolic Panel [address] [place], [place] [id number] [phone] BUN 14 mg/dL Normal 7-18 Creatinine 1.2 mg/dL Normal 0.6-1.3 Glom Filtration Rate, Estimate 54 mL/min >60 If >60 mL/min >60 9 BUN/Creat 11.6 ratio Sodium 140 mmol/L Normal 136-145 Potassium 4.3 mmol/L Normal 3.5-5.1 Chloride 111 mmol/L High 98-107 Carbon Dioxide 18 mmol/L Low 21-32 Anion Gap 11 mEq/L Normal 8-16 Calcium 8.8 mg/dL Normal 8.5-10.1 Total Protein 7.4 g/dL Normal 6.4-8.2 Albumin 3.4 g/dL Normal 3.4-5.0 Globulin 4.0 g/dL Normal 1.9-4.3 Alb/Glob 0.9 ratio Bilirubin,Total 0.5 mg/dL Normal 0.2-1.0 Sgot/Ast 22 U/L Normal 15-37 SGPT/Alt 22 U/L Normal 12-78 Alkaline Phosphatase 98 U/L Normal 45-117 Urine Culture 03/14/2019 [facility] Urine Culture NO GROWTH: FINAL [address] <SEE NOTE> [place] [address] [phone] Urine Culture 03/11/2019 [facility] Urine Culture NO GROWTH: FINAL 11, [address] <SEE NOTE> [place] [address] [phone] 1 PAIN IN BLADDER AREA 2 10,000 - 50,000 CFU/mL 3 N30.80 4 URINE, CLEAN CATCH 5 CULTURE TO FOLLOW 6 URINE, CLEAN CATCH 7 10,000 - 50,000 CFU/mL 8 UTI, NOT GETTING ANY BETTER 9 Note: Persistent reduction for 3 months or more in an eGFR <60 mL/min/1.73 m2 defines CKD. Patients with eGFR values >/=60 mL/min/1.73 m2 may also have CKD if evidence of persistent proteinuria is present. The original MDRD equation for estimated GFR is not valid for patients less than 18 years of age. Additional information may be found at www.kdoqi.org. 10 NO GROWTH: FINAL REPORT 11 UTI 12 NO GROWTH: FINAL REPORT Procedures Date Code Description Status 03/31/2019 71304 Cystoscopy Completed 08/31/2015 [id number] Mammogram Completed Medical Devices Description No Information Available Encounters Type Date Location Provider Dx Diagnosis Office Visit 06/14/2019 Urology Shanthi Garcia N30.80 Other cystitis 3:30p M.D. without hematuria Office Visit 05/17/2019 Urology Shanthi Garcia N30.80 Other cystitis 2:30p M.D. without hematuria Z71.6 Tobacco abuse counseling Office Visit 04/12/2019 11:15a Family Medicine Ivy Briceño, F41.[address] [employer] anxiety disorder K26.9 Duodenal ulcer, unsp as acute or chronic, w/o hemor or perf F17.210 Nicotine dependence, cigarettes, uncomplicated K59.00 Constipation, unspecified Office Visit 03/31/2019 1:00p Urology Shanthi Garcia N30.80 Other cystitis M.D. without hematuria Z71.6 Tobacco abuse counseling Office Visit 03/15/2019 10:00a Urology Thiago Miller N30.80 Other cystitis [place] without hematuria Assessments Date Code Description Provider 06/14/2019 N30.80 Other cystitis without hematuria Shanthi Garcia M.D. 05/17/2019 N30.80 Other cystitis without hematuria Shanthi Garcia M.D. 05/17/2019 Z71.6 Tobacco abuse counseling Shanthi Garcia M.D. 04/12/2019 F41.1 Generalized anxiety disorder Ivy Briceño FNP 04/12/2019 K26.9 Duodenal ulcer, unspecified as acute or Ivy Briceño, ROZ chronic, without hem 04/12/2019 F17.210 Nicotine dependence, cigarettes, Ivy Briceño FNP uncomplicated 04/12/2019 K59.00 Constipation, unspecified Ivy Briceño FNP 03/31/2019 N30.80 Other cystitis without hematuria Shanthi Garcia M.D. 03/31/2019 Z71.6 Tobacco abuse counseling Shanthi Garcia M.D. 03/15/2019 N30.80 Other cystitis without hematuria Thiago Miller PA Plan of Treatment No Information Available Functional Status Functional Condition Comment Date Status none Active Independent with all ADL's Active Mental Status Description No Information Available Referrals Description No Information Available
--- OUTSIDE RECORDS SUMMARY | 2019-09-15 17:51 | XMS REPORT | Continuity of Care Document ---
:1985 External Reference #:[id number] Author Name Ivy Briceño FNP (transmitted by agent of provider Nu Coreas) Address [address] [place] [id number] Problems Active Problems Provider Date Palpitations Ludy Gutierrez, MARSHALL, Onset: 07/06/2013 [employer] Dyspnea GutierrezLudy vernon, MARSHALL, Onset: 07/06/2013 [employer] Abdominal pain Ludy Gutierrez MSN, Onset: 07/06/2013 [employer] Dizziness and giddiness Ludy Gutierrez, MARSHALL, Onset: 07/06/2013 [employer] Chest pain Ludy Gutierrez MSN, Onset: 07/06/2013 [employer] Mild intermittent asthma Gianni Garcia FNP Onset: [...] Briceño, 04/21/2019 4mg Mouth Every 8 Hours [employer] Tablets If Needed For Nausea Fluconazole take 1 tablet by 1tabs Ivy Briceño, 04/12/2019 150mg mouth, one time. [employer] Tablets May repeat in 1 week if symptoms persist. Clonidine HCL take 1 tablet by 30tabs Ivy Briceño, 03/31/2019 0.1mg mouth 30 minutes to [employer] Tablets 1 hour before bedtime. Buspirone HCL 1 by mouth three 90tabs Ivy Briceño, 03/02/2019 15mg times a day [employer] Tablets Colace take 1 capsule by 60caps Ivy Briceño, 01/03/2019 100mg Capsules mouth daily as [employer] needed for constipation Sucralfate take 1 tablet by 60tabs Ivy Briceño, 1gm mouth twice daily [employer] Tablets Pantoprazole Sodium take 1 tablet by 30tabs Ivy rBiceño, mouth once daily [employer] 40mg Tablets DR History Medications Phenazopyridine HCL [...] kg/m2 BSA (Body Surface Area) 1.94 m2 [place] body weight in kilograms 45 kg O2 % BldC Oximetry 97 % 05/17/2019 2:28pm BP Systolic 118 mmHg BP Diastolic 81 mmHg Body Temperature 99.1 F Heart Rate 78 /min Respiratory Rate 17 /min Height 60 inches 5'0" Weight 213.25 lb Pain Level 10 Bladder BMI (Body Mass Index) 41.6 kg/m2 BSA (Body Surface Area) 1.92 m2 [place] body weight in kilograms 45 kg O2 [...] 6.5-7.5 Ua Blood neg Negative Ua Specific [place] 1.025 1.010-1.030 Ua Ketones neg Negative Ua Bilirubin neg Negative Ua Glucose neg Negative Urine Culture 06/09/2019 [facility] Urine Culture URETHRAL ANDREW [address] [place] [address] [phone] Quantity 10,000 - 50,000 <SEE NOTE> 2 Ua RFX Micro & 05/17/2019 [facility] Urine Color Dark-[place] Yellow 3 Culture II [address] [place] [address] [phone] Urine Clarity Clear Clear Urine Glucose - Dipstick NEGATIVE mg/dL Negative Urine Bilirubin - Dipstick SMALL Abnormal Negative Urine Ketone NEGATIVE mg/dL Negative Urine Specific [place] 1.020 Normal 1.010-1.030 Urine Blood NEGATIVE 0-2 [...] CAT <SEE NOTE> 4 Culture If 05/17/2019 [facility] Culture If CULTURE TO 5 Indicated Comment [address] Indicated Comment [place]O <[place] [address] NOTE> [phone] Source: URINE, CLEAN CAT <SEE NOTE> 6 Urine Culture 05/17/2019 [facility] Urine Culture URETHRAL ANDREW [address] [place] [address] [phone] Quantity 10,000 - 50,000 <SEE NOTE> 7 Urine Dipstick 05/17/2019 [facility] Inhouse Ua Color [place] Yellow Ua Clarity Clear Clear Ua Leuko 125 High Negative Ua Nitrite Positive Negative Ua Urobilinogen 8 High 0.2 - 1.0 E.U./dL Ua Protein Negative Negative Ua PH 6.0 Low 6.5-7.5 Ua Blood Negative Negative Ua Specific [place] 1.020 1.010-1.030 Ua Ketones 5 High Negative Ua Bilirubin 4 High Negative Ua Glucose Negative Negative Urine Dipstick 03/31/2019 [facility] Inhouse Ua Color Blue Yellow Ua Clarity Clear Clear Ua Leuko Negative Negative Ua Nitrite Negative Negative Ua Urobilinogen 0.2 0.2 - 1.0 E.U./dL Ua Protein 15 High Negative Ua PH 6.5 6.5-7.5 Ua Blood Negative Negative Ua Specific [place] 1.020 1.010-1.030 Ua Ketones Negative Negative Ua Bilirubin Negative Negative Ua Glucose Negative Negative Urine Dipstick 03/15/2019 [facility] Inhouse Ua Color yellow Yellow Ua Clarity clear Clear Ua Leuko negative Negative Ua Nitrite negative Negative Ua Urobilinogen 0.2 0.2 - 1.0 E.U./dL Ua Protein negative Negative Ua PH 6.0 Low 6.5-7.5 Ua Blood negative Negative Ua Specific [place] 1.015 1.010-1.030 Ua Ketones negative Negative Ua Bilirubin negative Negative Ua Glucose negative Negative CBC W/Automated 03/14/2019 [facility] White Blood 4.2 K/uL Normal 3.1-10.7 [address] [place] [address] [phone] Red Blood Count 4.11 M/uL Normal 3.90-5.40 [...] 40.4-72.8 Lymph % 35.9 % Normal 20.0-42.0 [place] % 7.8 % Normal 4.3-13.2 Eo% 0.0 % Normal 0.0-6.6 Bas% 0.0 % Normal 0.0-1.1 Immature Grans 0.2 % Normal 0.0-5.0 NRBC % 0.0 /100WBC < 10/ 100 WBC Neut# 2.37 K/uL Normal 1.8-7.0 Lymph # 1.52 K/uL Normal 1.0-4.0 [place] # 0.33 K/uL Normal 0.3-0.9 Eos # 0.00 K/uL Normal 0.0-0.5 Baso # 0.00 K/uL Normal 0.0-0.1 Immature Grans Absolute 0.01 K/uL NRBC # 0.00 K/uL Comprehensive 03/14/2019 [facility] Glucose 99 mg/dL Normal 74-106 Metabolic Panel [address] [place], [place] [id number] [phone] BUN 14 mg/dL Normal 7-18 Creatinine 1.2 [...] 98 U/L Normal 45-117 Urine Culture 03/14/2019 [facility] Urine Culture NO GROWTH: FINAL [address] <SEE NOTE> [place] [address] [phone] Urine Culture 03/11/2019 [facility] Urine Culture NO GROWTH: FINAL 11, [address] <SEE NOTE> [place] [address] [phone] 1 PAIN IN BLADDER AREA 2 10,000 [...] REPORT Procedures Date Code Description Status 03/31/2019 27881 Cystoscopy Completed 08/31/2015 [id number] Mammogram Completed Medical Devices Description No Information Available Encounters Type Date Location Provider Dx Diagnosis Office Visit 06/14/2019 Urology Shanthi Garcia N30.80 Other cystitis 3:30p M.D. without hematuria Office Visit 05/17/2019 Urology Shanthi Garcia N30.80 Other cystitis 2:30p M.D. without hematuria Z71.6 Tobacco abuse counseling Office Visit 04/12/2019 11:15a Family Medicine Ivy Briceño, F41.[address] [employer] anxiety disorder K26.9 Duodenal ulcer, unsp as [...]
--- OUTSIDE RECORDS SUMMARY | 2019-09-15 17:51 | XMS REPORT | Continuity of Care Document ---
:1985 External Reference #:[id number] Author Name Ivy Briceño FNP (transmitted by agent of provider Nu Coreas) Address [address] [place] [id number] Problems Active Problems Provider Date Palpitations Ludy Gutierrez, MARSHALL, Onset: 07/06/2013 [employer] OUT INSPECTOR Dyspnea GutierrezLudy vernon, MARSHALL, Onset: 07/06/2013 LAY OUT INSPECTOR Abdominal pain Ludy Gutierrez MSN, Onset: 07/06/2013 [employer]AY OUT INSPECTOR Dizziness and giddiness Ludy Gutierrez, MARSHALL, Onset: 07/06/2013 L[employer] OUT INSPECTOR Chest pain Ludy Gutierrez MSN, Onset: 07/06/2013 LAY OUT INSPECTOR Mild intermittent asthma Gianni Garcia FNP Onset: [...] Briceño, 04/21/2019 4mg Mouth Every 8 Hours LAY OUT INSPECTOR Tablets If Needed For Nausea Fluconazole take 1 tablet by 1tabs Ivy Briceño, 04/12/2019 150mg mouth, one time. [employer] INSPECTOR Tablets May repeat in 1 week if symptoms persist. Clonidine HCL take 1 tablet by 30tabs Ivy Briceño, 03/31/2019 0.1mg mouth 30 minutes to LAY OUT INSPECTOR Tablets 1 hour before bedtime. Buspirone HCL 1 by mouth three 90tabs Ivy Briceño, 03/02/2019 15mg times a day L[employer] OUT INSPECTOR Tablets Colace take 1 capsule by 60caps Ivy Briceño, 01/03/2019 100mg Capsules mouth daily as [employer] OUT INSPECTOR needed for constipation Sucralfate take 1 tablet by 60tabs Ivy Briceño, 1gm mouth twice daily [employer] OUT INSPECTOR Tablets Pantoprazole Sodium take 1 tablet by 30tabs Ivy Briceño, mouth once daily L[employer] OUT INSPECTOR 40mg Tablets DR History Medications Phenazopyridine HCL [...] kg/m2 BSA (Body Surface Area) 1.94 m2 [place] body weight in kilograms 45 kg O2 % BldC Oximetry 97 % 05/17/2019 2:28pm BP Systolic 118 mmHg BP Diastolic 81 mmHg Body Temperature 99.1 F Heart Rate 78 /min Respiratory Rate 17 /min Height 60 inches 5'0" Weight 213.25 lb Pain Level 10 Bladder BMI (Body Mass Index) 41.6 kg/m2 BSA (Body Surface Area) 1.92 m2 [place] body weight in kilograms 45 kg O2 [...] 6.5-7.5 Ua Blood neg Negative Ua Specific [place] 1.025 1.010-1.030 Ua Ketones neg Negative Ua Bilirubin neg Negative Ua Glucose neg Negative Urine Culture 06/09/2019 [facility] Urine Culture URETHRAL ANDREW [address] [place] [address] [phone] Quantity 10,000 - 50,000 <SEE NOTE> 2 Ua RFX Micro & 05/17/2019 [facility] Urine Color Dark-Colbert Yellow 3 Culture II [address] [place] [address] [phone] Urine Clarity Clear Clear Urine Glucose - Dipstick NEGATIVE mg/dL Negative Urine Bilirubin - Dipstick SMALL Abnormal Negative Urine Ketone NEGATIVE mg/dL Negative Urine Specific [place] 1.020 Normal 1.010-1.030 Urine Blood NEGATIVE 0-2 [...] CAT <SEE NOTE> 4 Culture If 05/17/2019 [facility] Culture If CULTURE TO [address] Indicated Comment [place]O <[place] [address] NOTE> [phone] Source: URINE, CLEAN CAT <SEE NOTE> 6 Urine Culture 05/17/2019 [facility] Urine Culture URETHRAL ANDREW [address] [place] [address] [phone] Quantity 10,000 - 50,000 <SEE NOTE> 7 Urine Dipstick 05/17/2019 [facility] Inhouse Ua Color Colbert Yellow Ua Clarity Clear Clear Ua Leuko 125 High Negative Ua Nitrite Positive Negative Ua Urobilinogen 8 High 0.2 - 1.0 E.U./dL Ua Protein Negative Negative Ua PH 6.0 Low 6.5-7.5 Ua Blood Negative Negative Ua Specific [place] 1.020 1.010-1.030 Ua Ketones 5 High Negative Ua Bilirubin 4 High Negative Ua Glucose Negative Negative Urine Dipstick 03/31/2019 [facility] Inhouse Ua Color Blue Yellow Ua Clarity Clear Clear Ua Leuko Negative Negative Ua Nitrite Negative Negative Ua Urobilinogen 0.2 0.2 - 1.0 E.U./dL Ua Protein 15 High Negative Ua PH 6.5 6.5-7.5 Ua Blood Negative Negative Ua Specific [place] 1.020 1.010-1.030 Ua Ketones Negative Negative Ua Bilirubin Negative Negative Ua Glucose Negative Negative Urine Dipstick 03/15/2019 [facility] Inhouse Ua Color yellow Yellow Ua Clarity clear Clear Ua Leuko negative Negative Ua Nitrite negative Negative Ua Urobilinogen 0.2 0.2 - 1.0 E.U./dL Ua Protein negative Negative Ua PH 6.0 Low 6.5-7.5 Ua Blood negative Negative Ua Specific [place] 1.015 1.010-1.030 Ua Ketones negative Negative Ua Bilirubin negative Negative Ua Glucose negative Negative CBC W/Automated 03/14/2019 [facility] White Blood 4.2 K/uL Normal 3.1-10.[address] [place] [address] [phone] Red Blood Count 4.11 M/uL Normal 3.90-5.40 [...] 40.4-72.8 Lymph % 35.9 % Normal 20.0-42.0 [place] % 7.8 % Normal 4.3-13.2 Eo% 0.0 % Normal 0.0-6.6 Bas% 0.0 % Normal 0.0-1.1 Immature Grans 0.2 % Normal 0.0-5.0 NRBC % 0.0 /100WBC < 10/ 100 WBC Neut# 2.37 K/uL Normal 1.8-7.0 Lymph # 1.52 K/uL Normal 1.0-4.0 [place] # 0.33 K/uL Normal 0.3-0.9 Eos # 0.00 K/uL Normal 0.0-0.5 Baso # 0.00 K/uL Normal 0.0-0.1 Immature Grans Absolute 0.01 K/uL NRBC # 0.00 K/uL Comprehensive 03/14/2019 [facility] Glucose 99 mg/dL Normal 74-106 Metabolic Panel [address] [place], [place] [id number] [phone] BUN 14 mg/dL Normal 7-18 Creatinine 1.2 [...] 98 U/L Normal 45-117 Urine Culture 03/14/2019 [facility] Urine Culture NO GROWTH: FINAL [address] <SEE NOTE> [place] [address] [phone] Urine Culture 03/11/2019 [facility] Urine Culture NO GROWTH: FINAL 11, [address] <SEE NOTE> [place] [address] [phone] 1 PAIN IN BLADDER AREA 2 10,000 [...] REPORT Procedures Date Code Description Status 03/31/2019 40596 Cystoscopy Completed 08/31/2015 43003002 Mammogram Completed Medical Devices Description No Information Available Encounters Type Date Location Provider Dx Diagnosis Office Visit 06/14/2019 Urology Shanthi Garcia N30.80 Other cystitis 3:30p M.D. without hematuria Office Visit 05/17/2019 Urology Shanthi Garcia N30.80 Other cystitis 2:30p M.D. without hematuria Z71.6 Tobacco abuse counseling Office Visit 04/12/2019 11:15a Family Medicine Ivy Briceño, F41.[address] LAY OUT INSPECTOR anxiety disorder K26.9 Duodenal ulcer, unsp as acute or chronic, w/o hemor or perf F17.210 Nicotine dependence, cigarettes, uncomplicated K59.00 Constipation, unspecified Office Visit 03/31/2019 1:00p Urology Shanthi Garcia N30.80 Other cystitis M.D. without hematuria Z71.6 Tobacco abuse counseling Office Visit 03/15/2019 10:00a Urology Thiago Miller N30.80 Other cystitis [place] without hematuria Assessments Date Code Description Provider 06/14/2019 N30.80 Other cystitis without hematuria Shatnhi Garcia M.D. 05/17/2019 N30.80 Other cystitis without [...]
[2019-09-15 18:17] VITALS: BP 113/78
--- NOTE | 2019-09-15 18:19 | UC ---
Throat Pain/Nasal Haris HPI - HPI Summary HPI Summary: 34-year-old female who has had cold symptoms for the past 8 days and now has continued had congestion and sinus pressure with postnasal drainage. She is so stuffed up she cannot breathe through her nose. She has been using something similar to Afrin nasal spray over the past 4-5 days without improvement. - History of Current Complaint Chief Complaint: UCGeneralIllness Stated Complaint: SINUS PRESSURE Time Seen by Provider: 09/15/19 17:55 Hx Obtained From: Patient Hx Last Menstrual Period: 09/12/2019 ?: No Onset/Duration: Gradual Onset Severity: Moderate Pain Intensity: 10 Cough: Nonproductive Associated Signs & Symptoms: Positive: Sinus Discomfort, Nasal Discharge - Allergies/Home Medications Allergies/Adverse Reactions: Allergies Allergy/AdvReac Type Severity Reaction Status Date / Time No Known Allergies Allergy Verified 09/15/19 18:08 Home Medications: Home Medications Acetaminophen [Tylenol Extra Strength] 500 mg PO DAILY PRN 09/15/19 [History Confirmed 09/15/19] Ibuprofen TAB* [Advil TAB*] 600 mg PO Q6H PRN 09/15/19 [History Confirmed ] Oxybutynin Chloride [Oxybutynin Chloride ER] 10 mg PO DAILY 09/15/19 [History Confirmed 09/15/19] Pentosan Polysulfate Sod (NF) [Elmiron (NF)] 100 mg PO TID 09/15/19 [History Confirmed 09/15/19] PMH/Surg Hx/FS Hx/Imm Hx Previously Healthy: Yes Respiratory History: Asthma - Surgical History Surgical History: Yes Surgery Procedure, Year, and Place: cholycystecomy. 2 c-sections - Family History Known Family History: Positive: Cardiac Disease - Social History Lives: With Family Alcohol Use: Rare Substance Use Type: None Smoking Status (MU): Light Every Day Tobacco Smoker Type: Cigarettes Amount Used/How Often: 5 per day Length of Time of Smoking/Using Tobacco: 15 yrs Have You Smoked in the Last Year: Yes When Did the Patient Quit Smoking/Using Tobacco: 10 years ago - Immunization History Most Recent Tetanus Shot: UTD Review of Systems All Other Systems Reviewed And Are Negative: Yes ENT: Positive: Nasal Discharge, Sinus Congestion, Sinus Pain/Tenderness Respiratory: Positive: Cough - Nonproductive cough. Neurological: Positive: Headache - Sinus headache. Is Patient Immunocompromised?: No Physical Exam Triage Information Reviewed: Yes Appearance: No Pain Distress, Well-Nourished, Ill-Appearing Vital Signs: Initial Vital Signs Temp 98.6 F 09/15/19 18:12 Pulse 72 09/15/19 18:12 Resp 16 09/15/19 18:12 BP 113/78 09/15/19 18:12 Pulse Ox 100 09/15/19 18:12 Vital Signs Reviewed: Yes Eyes: Positive: Conjunctiva Clear ENT: Positive: Pharynx normal - Yellow postnasal drainage, Nasal congestion - Inflamed turbinates with yellow purulent drainage., Nasal drainage, TMs normal, Sinus tenderness - Tender over the maxillary and frontal sinuses bilaterally., Uvula midline Neck: Positive: Supple, Nontender, No Lymphadenopathy Respiratory: Positive: Lungs clear, Normal breath sounds, No respiratory distress, No accessory muscle use Cardiovascular: Positive: RRR, No Murmur, Pulses Normal, Brisk Capillary Refill Musculoskeletal Exam: Normal Neurological Exam: Normal Psychological Exam: Normal Skin Exam: Normal Throat Pain/Nasal Course/Dx - Course Course Of Treatment: Patient is nontoxic here. I'm going to treat her for sinus infection. She is to stop the Afrin nasal spray. I'm also giving her Flonase and she needs Diflucan because of possible yeast infections related to antibiotics. - Differential Dx/Diagnosis Provider Diagnosis: Sinusitis Discharge ED - Sign-Out/Discharge Documenting (check all that apply): Patient Departure All imaging exams completed and their final reports reviewed: No Studies - Discharge Plan Condition: Fair Disposition: HOME Prescriptions: Amoxicillin PO (*) [Amoxicillin 875 MG (*)] 875 mg PO BID 10 Days #20 tab Fluconazole 150 MG TAB* [Diflucan 150 MG TAB*] 150 mg PO UC ONCE 1 Days #1 tablet Fluticasone NASAL SPRAY 50MCG* [Flonase NASAL SPRAY 50MCG*] 2 spray BOTH NARES DAILY 7 Days #1 btl Patient Education Materials: Sinusitis (ED) Referrals: Ivy Briceño NP [Primary Care Provider] - Additional Instructions: Increase fluids, follow-up with your primary care provider if no improvement in 5-7 days. - Billing Disposition and Condition Condition: FAIR Disposition: Home - Attestation Statements Provider Attestation: This patient was not seen by me. I was available for consult. Chart reviewed. RASHMI
== END 2019-09-15 18:32 | disposition home or self-care (01) ==
LOC: UCCORT 17:27
DX: J32.9 Chronic sinusitis, unspecified (principal); J45.909 Unspecified asthma, uncomplicated; R05 Cough; F17.210 Nicotine dependence, cigarettes, uncomplicated
CPT/HCPCS: 99212; G0463